=== PATIENT | female | born 1995 | race Caucasian/White ===

== ENCOUNTER 2018-11-17 23:44 | Emergency (ER) | payer OTHER, SELFPAY ==
[2018-11-17 23:58] VITALS: BP 119/76; PULSE 65; RESP 18; TEMP 36.6; O2SAT 100; BMI 22.4
[2018-11-17] MEDS: TET,DIPH,PERTUSS(ACELL),VAC/PF 0.5 ML SYRINGE IM (23:59)
[2018-11-18 01:10] VITALS: BP 117/72; PULSE 68; RESP 19; TEMP 36.9; O2SAT 100
--- NOTE | 2018-11-21 07:34 | ED_ITS ---
HPI - Wound/Laceration General Chief Complaint: Wound/Laceration Stated Complaint: left hand cut today Time Seen by Provider: 11/17/18 23:49 Source: patient and family Mode of arrival: ambulatory Limitations: no limitations History of Present Illness HPI narrative: 23-year-old female, daily smoker presents with chief complaint of a laceration of her left hand just prior to arrival. It is work related injury, accidental in with a sharp knife. She has full range of motion and denies numbness or tingling. She is not dizzy nor weak or lightheaded. Onset (ago): minute(s) Extremity Location: Left: hand Place: work Patient tetanus UTD: Yes Context: accidental Associated symptoms: pain Treatments prior to arrival: bandage Related Data Previous Rx's Medication Instructions Recorded citalopram 20 mg tablet 20 mg PO DAILY #30 tab 04/26/18 clonazepam 0.5 mg tablet 1 mg PO BIDP PRN #20 tab 04/27/18 Allergies Allergy/AdvReac Type Severity Reaction Status Date / Time No Known Drug Allergies Allergy Verified 04/26/18 11:05 Review of Systems Constitutional Denies chills, Denies fever(s), Denies lethargy and Denies weakness Eyes Denies change in vision, Denies eye discharge, Denies irritation and Denies loss of vision ENT Ears, Nose, Mouth, and Throat: Denies change in voice, Denies neck pain and Denies sore throat Cardiovascular Denies chest pain, Denies irregular heart rhythm, Denies lightheadedness, Denies palpitations, Denies dyspnea, Denies dyspnea on exertion and Denies orthopnea Respiratory Denies cough, Denies dyspnea, Denies dyspnea on exertion and Denies wheezing Gastrointestinal Gastrointestinal: Denies abdominal pain, Denies change in bowel habits, Denies diarrhea, Denies nausea and Denies vomiting Genitourinary Denies hematuria, Denies flank pain, Denies urinary incontinence and Denies urinary urgency Musculoskeletal Denies neck pain Integumentary/Breasts Denies pruritus, Denies erythema, Denies rash and Reports wounds Neurologic Denies confusion, Denies loss of vision and Denies weakness Psychiatric Denies anxiety, Denies confusion, Denies depression, Denies homicidal ideation and Denies suicidal ideation Endocrine Denies palpitations Hematologic/Lymphatic Denies easy bruising Allergic/Immunologic Denies wheezing [facility] Surgical History History of tonsillectomy Social History Smoking Status: Current every day smoker alcohol intake: never substance use type: marijuana Exam Narrative Exam Narrative: GEN: AOx3 and in mild distress EYES: Pupils are equal, round, and reactive to light and accommodation. Extraoccular muscles are intact bilaterally. There is no subconjunctival hemorrhage or exudate. CHEST: Lungs are clear to auscultation bilaterally and free of wheezes, rales, or rhonchi. Heart rate is regular rhythm, there are no murmurs, clicks, rubs, or gallops. There is no chest wall tenderness. ABD: Abdomen is soft and nontender. There is no guarding or rebound. Bowel sounds are normal in all 4 quadrants. There is no mass or organomegaly. EXT: Full painless ROM of all extremities with no loss of sensation or strength. SKIN: 1 cm laceration on dorsum of left hand, no tendon involvement, deep structures intact, viewed in bloodless field. Warm, pink, and dry. No erythema or rash Initial Vital Signs Initial Vital Signs: Vital Signs Temperature 97.9 F 11/17/18 23:58 Pulse Rate 65 11/17/18 23:58 Respiratory Rate 18 11/17/18 23:58 Blood Pressure 119/76 11/17/18 23:58 Pulse Oximetry 100 11/17/18 23:58 Procedures Laceration Repair Laceration 1: Site: hand Side (If applicable): left Size (cm): 1 Description: linear Depth: simple, single layer Local Anesthetic: lidocaine 1% and with bicarb Amount of anesthesia used (mL): 3 Pre-repair: wound explored, irrigated extensively and deep structures intact Skin layer closed with: nylon Size (cm): 5-0 Number of sutures: 4 Technique: simple, interrupted Course Orders Ordered: Discontinued Medications Diphtheria/Tetanus/Acell Pertussis (Adacel) 0.5 ml IM .ONCE ONE Stop: 11/17/18 23:59 Last Admin: 11/17/18 23:59 Dose: 0.5 ml Discharge Plan Departure Patient Disposition: Home Clinical Impression: Laceration Discharge Date/Time: 11/18/18 01:10 Interventions: ED Discharge Assessment Last Done: 11/18/18 01:10 Instructions: DI for Laceration Repair -- Simple Activity Restrictions/Additional Instructions: Please keep the wound clean and dry to the best of your ability. Please monitor for signs of infection such as redness to the skin or increasing pain. Have the sutures removed by your doctor in about 7 days. If you are unable to get into your doctor, we would be happy to remove the sutures in that same timeframe. Prescriptions: No Action citalopram 20 mg tablet 20 mg PO DAILY Qty: 30 RF: 5 clonazepam 0.5 mg tablet 1 mg PO BIDP PRN (Reason: anxiety) Qty: 20 RF: 1
== END 2018-11-18 01:10 | disposition home or self-care (01) ==
PROVIDERS: Emergency Provider Emergency Medicine
DX: S61.412A Laceration without foreign body of left hand, initial encounter (principal); W26.0XXA Contact with knife, initial encounter; Y99.0 Civilian activity done for income or pay
CPT/HCPCS: 12001; 90471; 99283; 90715

== ENCOUNTER 2019-03-21 16:00 | Outpatient (RCR) | payer OTHER, MEDICAID, SELFPAY ==
--- NOTE | 2019-01-29 17:20 | PT.OPPOC ---
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 Primary Care Provider Specialty: Family Practice Address: [address] [place] [address], [place], [place], [facility] Email: Plan Of Care PT-OP-T Assessment and Plan Start: 01/28/19 17:17 Freq: Status: Active Protocol: Document 01/28/19 17:20 EA (Rec: 01/28/19 17:36 EA [id number]) Physical Therapy Assessment Rehab Potential Rehabilitation Potential Good Evaluation Complexity Number of Personal Factors/Comorbidities 1-2 Number of Body Systems Impaired 1-2 Clinical Presentation at Evaluation Stable Impairments Impairments Pain Posture Soft Tissue Mobility Other Concerns Barriers to Rehabilitation Depression Goals Four Impairment Impaired sleeping Medical Office Secretary Goal (LTG) Patient will sleep > 6 hours without symptoms LTG Duration 4 wks Three Impairment Impaired sitting tolerance Longterm Goal (LTG) Patient will sit > on different surface > 2 hours with out increase in symptoms LTG Duration 4 wks Two Impairment Impaired posture Medical Office Secretary Goal (LTG) Patient exhibits near to normal posture to improve function and prevent muscular imbalances LTG Duration 4 wks One Impairment Oswestry low back pain scale of 19/50 Medical Office Secretary Goal (LTG) Patient will have Oswestry score of <10/50 LTG Duration 4 wks Assessment Summary Assessment Pleasant 23 y/o F patient with referring diagnosis of low back strain presented today with limitation in lumbosacral spine mobility due to pain. Lumbar spine special tests reveals + with active SLR, Left Gaenslen's SI joint test is positive as well. MMT and sensory tests reveals insignificant with ability of the patient walk on toes and heels. Back and bilateral hip extension reveals + which suggests lumbar dysfunction. In my professional opinion patient would benefit with skilled PT to correct posture through core stabilization exercises and use of modalities/manual to alleviate symptoms. Physical Therapy Plan Frequency and Duration Frequency of Treatment 2x/Week Duration of Treatment 8 Plan of Care Start Date 01/28/19 Plan of Care End Date 03/18/19 Therapeutic Interventions Therapeutic Interventions Home Exercise Program Manual Therapy Patient/Caregiver Education Self-Care/Home Management Soft Tissue Mobilization Taping Therapeutic Exercises Modalities Cold Pack/Ice Massage Electric Stimulation Hot Packs Iontophoresis Ultrasound Next Visit Focus/Plan Next Note Type Treatment Note Next Visit Plan HEP, manual and modalities Plan of Care Dates Plan of Care Start Date 01/28/19 Plan of Care End Date 03/18/19 Please Sign and Return: I have reviewed this Plan of Care and certify that the skilled therapy services above are required to meet the patient?s needs. Physician Signature Date Printed Name and Credentials Clinical Instructor Signature Printed Name and Credentials
--- NOTE | 2019-01-29 17:20 | PT.OIE ---
Current Diagnoses Strain of muscle, fascia and tendon of lower back, initial encounter (01/28/19) Past Surgical History (Last Reviewed 11/21/18 @ 07:33 by Yunier Dowd DO) History of tonsillectomy Provider Visit Care Team Role Provider Type MARGOT Marmolejo Attending Provider Advanced Intranet Specialist Primary Care Provider Specialty: Family Practice Address: [address] [place] [address], [id number] Email: Physical Therapy Initial Evaluation PT-OP-A Visit Information Start: 01/28/19 17:17 Freq: Status: Active Protocol: Document 01/28/19 17:20 EA (Rec: 01/28/19 17:36 EA [id number]) Out-Patient Physical Therapy Visit Information Visit Information Visit Type Initial Evaluation Visit Start Time 13:45 Visit Stop Time 14:30 Total Visit Minutes 40 Visit Number 1 Evaluation Information Evaluation Date 01/28/19 PT-OP-B Current Condition Start: 01/28/19 17:17 Freq: Status: Active Protocol: Document 01/28/19 17:20 EA (Rec: 01/28/19 17:36 EA [id number]) Current Condition History of Current Condition Onset Date Chronic 7 years ago History of Current Condition Patient reports present condition started seven years ago with no known significant injury or medical history. Patient states that common OTC pain meds managed pain and lately she has been using medical marijuana to improved her function everyday. She mentioned feels at this time that she is dependent on medical marijuana and that is why she is seeking physical therapy services. Pt reports morning stiffness and difficulty in mobility is common. She denies any numbness or loss of function to both LE. She feels the whole back and posterior neck are tight and sore. 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 Prior Treatments and Tests OTC and Medical Marijuana Future Testing and Treatments Planned None identified Treatment Goals Patient/Caregiver Goals Patient would like to reduce pain to at least 2/10 and strengthen core muscle. 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 Baseline Function- Recreation/Hobbies Wall climbing 3 x wk Current Functional Impairments (Reported) Functional Limitations- ADL's Indep Functional Limitations- Mobility/Gait Indep Functional Limitations- Work/School Limited with long hours of standing and bending Functional Limitations- Recreation/ Unable to to perform > 2x/wk Hobbies of wall climbing due to increased of pain Personal Factors Other Personal Factors That May Effect Depression Therapy/Recovery PT-OP-C Subjective Start: 01/28/19 17:17 Freq: Status: Active Protocol: Document 01/29/19 17:20 EA (Rec: 01/30/19 12:18 EA [id number]) OP-PT Subjective Patient Comments Patient Comments I want to reduce pain to 1/10 ; states I'am sure my mid back, neck and shoulder pain is due to my low back pain. Patient Reported Progress Same Patient Questionnaires Oswestry Low Back Index Oswestry Score 20 Oswestry Impairment 20 to 39% Impaired (Score 20- 39) OP-PT Pain Assessment Pain Assessment Grid Paper Pain Assessment Grid Completed Yes Location Bilateral Lower Back Pain Location Details SI and pralaumbars areas Intensity 6 Scale Used Numeric (1 - 10) Description Aching Tender Tightness Frequency Intermittent Pain Aggravating Factors Position Activity Bending Other Pain Alleviating Factors Marijuana, OTC pain meds PT-OP-G Mobility & Gait Start: 01/28/19 17:17 Freq: Status: Active Protocol: Document 01/29/19 17:00 EA (Rec: 01/30/19 07:30 EA [id number]) OP Gait Assessment Comments Gait Comments WFL PT-OP-J Posture/Palpation/Skin Start: 01/28/19 17:17 Freq: Status: Active Protocol: Document 01/29/19 17:00 EA (Rec: 01/30/19 07:30 EA [id number]) Posture Evaluation Comments Posture Comments Increased lumbar lordosis PT-OP-K Range of Motion Start: 01/28/19 17:17 Freq: Status: Active Protocol: Document 01/29/19 17:00 EA (Rec: 01/30/19 07:30 EA [id number]) Lumbar Spine Range of Motion Lumbar Spine Active Percentage Testing Position Standing Flexion 90 Extension 85 Rotation Left 90 Rotation Right 90 Lateral Flexion Left 60 Lateral Flexion Right 50 ROM Limitations Soft Tissue Tightness Pain PT-OP-L Special Tests Start: 01/28/19 17:17 Freq: Status: Active Protocol: Document 01/29/19 17:00 EA (Rec: 01/30/19 07:30 EA [id number]) Special Tests Lumbar Spine Special Tests Other- 1 Test Results Factes posterior quadrant + Straight Leg Raise Test Results + Stork Test Test Results - Prone Instability Test Test Results + PT-OP-M Strength Start: 01/28/19 17:17 Freq: Status: Active Protocol: Document 01/28/19 17:20 EA (Rec: 01/28/19 17:36 EA [id number]) Hip Strength Hip Manual Muscle Testing Right Reason Not Measured WFL Left Reason Not Measured WFL Knee Strength Knee Manual Muscle Testing Right Reason Not Measured WFL Left Reason Not Measured WFL PT-OP-Q Treatments Start: 01/28/19 17:17 Freq: Status: Active Protocol: Document 01/28/19 17:20 EA (Rec: 01/28/19 17:36 EA [id number]) Manual Therapy Treatment Soft Tissue Mobilization 1 Body Location Both traps, SI jnt, rhomboids Mobilization Type Myofascial Release Sustained Pressure Trigger Point Release Intensity/Depth Moderate Body Position Prone Self-Care/Home Management Treatment Education Patient Education Home Exercise Program Pain Management Posture PT-OP-T Assessment and Plan Start: 01/28/19 17:17 Freq: Status: Active Protocol: Document 01/28/19 17:20 EA (Rec: 01/28/19 17:36 EA [id number]) Physical Therapy Assessment Rehab Potential Rehabilitation Potential Good Evaluation Complexity Number of Personal Factors/Comorbidities 1-2 Number of Body Systems Impaired 1-2 Clinical Presentation at Evaluation Stable Impairments Impairments Pain Posture Soft Tissue Mobility Other Concerns Barriers to Rehabilitation Depression Goals Four Impairment Impaired sleping Water Quality Control Engineer Goal (LTG) Patient will sleep > 6 hours without symptoms LTG Duration 4 wks Three Impairment Impaired sitting tolerance Prison Goal (LTG) Patient allan sit > on different surface > 2 hours withotu increase in symptoms LTG Duration 4 wks Two Impairment Impaired posture Water Quality Control Engineer Goal (LTG) Patient exhibits near to normal posture to improve function and prevent muscular imbalances LTG Duration 4 wks One Impairment Oswetry low back pain scale of 19/50 Prison Goal (LTG) Patient will have Oswetry score of <10/50 LTG Duration 4 wks Assessment Summary Assessment Pleasant 23 y/o F patient with referring diagnosis of low back strain presented today with limitation in lumbosacral spine mobility due to pain. Lumbar spine special tests reveals + with active SLR, Left Gaenslen's SI joint test is positive as well. MMT and sensory tests reveals insignificant with ability of the patient walk on toes and heels. Back and bilateral hip extension reveals + which suggests lumbar dysfunction. In my professional opinion patient would benefit with skilled PT to correct posture through core stabilization exercises and use of modalities/manual to alleviate symptoms. Physical Therapy Plan Frequency and Duration Frequency of Treatment 2x/Week Duration of Treatment 8 Plan of Care Start Date 01/28/19 Plan of Care End Date 03/18/19 Therapeutic Interventions Therapeutic Interventions Home Exercise Program Manual Therapy Patient/Caregiver Education Self-Care/Home Management Soft Tissue Mobilization Taping Therapeutic Exercises Modalities Cold Pack/Ice Massage Electric Stimulation Hot Packs Iontophoresis Ultrasound Next Visit Focus/Plan Next Note Type Treatment Note Next Visit Plan HEP, manual and modalities
--- NOTE | 2019-01-31 15:30 | PT.OTN ---
Current Diagnoses Strain of muscle, fascia and tendon of lower back, initial encounter (01/31/19) Physical Therapy Treatment Note PT-OP-A Visit Information Start: 01/28/19 17:17 Freq: Status: Active Protocol: Document 01/31/19 15:17 EA (Rec: 01/31/19 15:27 EA [id number]) Out-Patient Physical Therapy Visit Information Visit Information Visit Type Treatment Note Visit Start Time 14:30 Visit Stop Time 15:15 Total Visit Minutes 45 Visit Number 2 PT-OP-B Current Condition Start: 01/28/19 17:17 Freq: Status: Active Protocol: Document 01/28/19 17:20 EA (Rec: 01/28/19 17:36 EA [id number]) Current Condition History of Current Condition Onset Date Chronic 7 years ago History of Current Condition Patient reports present condition started seven years ago with no known significant injury or medical history. Patient states that common OTC pain meds managed pain and lately she has been using medical marijuana to improved her function everyday. She mentioned feels at this time that she is dependent on medical marijuana and that is why she is seeking physical therapy services. Pt reports morning stiffness and difficulty in mobility is common. She denies any numbness or loss of function to both LE. She feels the whole back and posterior neck are tight and sore. 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 Prior Treatments and Tests OTC and Medical Marijuana Future Testing and Treatments Planned None identified Treatment Goals Patient/Caregiver Goals Patient would like to reduce pain to at least 2/10 and strengthen core muscle. 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 Baseline Function- Recreation/Hobbies Wall climbing 3 x wk Current Functional Impairments (Reported) Functional Limitations- ADL's Indep Functional Limitations- Mobility/Gait Indep Functional Limitations- Work/School Limited with long hours of standing and bending Functional Limitations- Recreation/ Unable to to perform > 2x/wk Hobbies of wall climbing due to increased of pain Personal Factors Other Personal Factors That May Effect Depression Therapy/Recovery PT-OP-C Subjective Start: 01/28/19 17:17 Freq: Status: Active Protocol: Document 01/31/19 15:17 EA (Rec: 01/31/19 15:27 EA [id number]) OP-PT Subjective Patient Comments Patient Comments Pt reports her girlfriend cracked her back and feels good after that; states back soreness usually occured happen in the morning. Patient Reported Progress Same PT-OP-G Mobility & Gait Start: 01/28/19 17:17 Freq: Status: Active Protocol: Document 01/29/19 17:00 EA (Rec: 01/30/19 07:30 EA [id number]) OP Gait Assessment Comments Gait Comments WFL PT-OP-J Posture/Palpation/Skin Start: 01/28/19 17:17 Freq: Status: Active Protocol: Document 01/29/19 17:00 EA (Rec: 01/30/19 07:30 EA [id number]) Posture Evaluation Comments Posture Comments Increased lumbar lordosis PT-OP-K Range of Motion Start: 01/28/19 17:17 Freq: Status: Active Protocol: Document 01/29/19 17:00 EA (Rec: 01/30/19 07:30 EA [id number]) Lumbar Spine Range of Motion Lumbar Spine Active Percentage Testing Position Standing Flexion 90 Extension 85 Rotation Left 90 Rotation Right 90 Lateral Flexion Left 60 Lateral Flexion Right 50 ROM Limitations Soft Tissue Tightness Pain PT-OP-L Special Tests Start: 01/28/19 17:17 Freq: Status: Active Protocol: Document 01/29/19 17:00 EA (Rec: 01/30/19 07:30 EA [id number]) Special Tests Lumbar Spine Special Tests Other- 1 Test Results Factes posterior quadrant + Straight Leg Raise Test Results + Stork Test Test Results - Prone Instability Test Test Results + PT-OP-M Strength Start: 01/28/19 17:17 Freq: Status: Active Protocol: Document 01/28/19 17:20 EA (Rec: 01/28/19 17:36 EA [id number]) Hip Strength Hip Manual Muscle Testing Right Reason Not Measured WFL Left Reason Not Measured WFL Knee Strength Knee Manual Muscle Testing Right Reason Not Measured WFL Left Reason Not Measured WFL PT-OP-Q Treatments Start: 01/28/19 17:17 Freq: Status: Active Protocol: Document 01/31/19 15:17 EA (Rec: 01/31/19 15:27 EA [id number]) Therapeutic Exercises Supine Exercises 4 Supine Exercise Name PPT with SLR Side bilateral Reps/Minutes 10reps x 2sets 3 Supine Exercise Name Lumbar rotation stretch Side bilateral Reps/Minutes x15SH x 2 reps 2 Supine Exercise Name BKTC Side bilateral Reps/Minutes x15SH x 2 reps 1 Supine Exercise Name SKTC Side bilateral Reps/Minutes x15SH x 2 reps Prone Exercises 1 Prone Exercise Name HIP extension Side bilateral Reps/Minutes x 10 reps Manual Therapy Treatment Soft Tissue Mobilization 1 Mobilization Type Myofascial Release Rolling Sustained Pressure Trigger Point Release Intensity/Depth Moderate Body Position Prone PT-OP-R Modalities Start: 01/31/19 15:28 Freq: Status: Active Protocol: Document 01/31/19 15:28 EA (Rec: 01/31/19 15:29 EA [id number]) Electric Stimulation Electric Stimulation Interferential Current (IFC) Body Location Lumbosacral Duration (Minutes) 15 Contraction Type Normal Patient Position Prone Combined With Heat/Cold Hot Pack PT-OP-T Assessment and Plan Start: 01/28/19 17:17 Freq: Status: Active Protocol: Document 01/31/19 15:17 EA (Rec: 01/31/19 15:27 EA [id number]) Physical Therapy Assessment Assessment Summary Assessment Pt tolerated treatment well with slight discomfort during hip extension. Physical Therapy Plan Next Visit Focus/Plan Next Note Type Treatment Note
--- NOTE | 2019-02-07 16:45 | PT.OTN ---
Current Diagnoses Strain of muscle, fascia and tendon of lower back, initial encounter (02/07/19) Physical Therapy Treatment Note PT-OP-A Visit Information Start: 01/28/19 17:17 Freq: Status: Active Protocol: Document 02/07/19 17:35 RCC (Rec: 02/07/19 17:50 RCC [email or web address]) Out-Patient Physical Therapy Visit Information Visit Information Visit Type Treatment Note Visit Start Time 16:45 Visit Stop Time 17:35 Total Visit Minutes 50 Visit Number 3 Number of MOLD CHIPPER Visits 0 Evaluation Information Evaluation Date 01/28/19 PT-OP-B Current Condition Start: 01/28/19 17:17 Freq: Status: Active Protocol: Document 01/28/19 17:20 EA (Rec: 01/28/19 17:36 EA [id number]) Current Condition History of Current Condition Onset Date Chronic 7 years ago History of Current Condition Patient reports present condition started seven years ago with no known significant injury or medical history. Patient states that common OTC pain meds managed pain and lately she has been using medical marijuana to improved her function everyday. She mentioned feels at this time that she is dependent on medical marijuana and that is why she is seeking physical therapy services. Pt reports morning stiffness and difficulty in mobility is common. She denies any numbness or loss of function to both LE. She feels the whole back and posterior neck are tight and sore. 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 Prior Treatments and Tests OTC and Medical Marijuana Future Testing and Treatments Planned None identified Treatment Goals Patient/Caregiver Goals Patient would like to reduce pain to at least 2/10 and strengthen core muscle. 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 Baseline Function- Recreation/Hobbies Wall climbing 3 x wk Current Functional Impairments (Reported) Functional Limitations- ADL's Indep Functional Limitations- Mobility/Gait Indep Functional Limitations- Work/School Limited with long hours of standing and bending Functional Limitations- Recreation/ Unable to to perform > 2x/wk Hobbies of wall climbing due to increased of pain Personal Factors Other Personal Factors That May Effect Depression Therapy/Recovery PT-OP-C Subjective Start: 01/28/19 17:17 Freq: Status: Active Protocol: Document 02/07/19 17:35 RCC (Rec: 02/07/19 17:50 RCC [email or web address]) OP-PT Subjective Patient Comments Patient Comments Pt states that she has had some increased upper back pain since attempting to rock climb indoors. Her low back felt much better after heat and E-stim. PT-OP-G Mobility & Gait Start: 01/28/19 17:17 Freq: Status: Active Protocol: Document 01/29/19 17:00 EA (Rec: 01/30/19 07:30 EA [id number]) OP Gait Assessment Comments Gait Comments WFL PT-OP-J Posture/Palpation/Skin Start: 01/28/19 17:17 Freq: Status: Active Protocol: Document 01/29/19 17:00 EA (Rec: 01/30/19 07:30 EA [id number]) Posture Evaluation Comments Posture Comments Increased lumbar lordosis PT-OP-K Range of Motion Start: 01/28/19 17:17 Freq: Status: Active Protocol: Document 01/29/19 17:00 EA (Rec: 01/30/19 07:30 EA [id number]) Lumbar Spine Range of Motion Lumbar Spine Active Percentage Testing Position Standing Flexion 90 Extension 85 Rotation Left 90 Rotation Right 90 Lateral Flexion Left 60 Lateral Flexion Right 50 ROM Limitations Soft Tissue Tightness Pain PT-OP-L Special Tests Start: 01/28/19 17:17 Freq: Status: Active Protocol: Document 01/29/19 17:00 EA (Rec: 01/30/19 07:30 EA [id number]) Special Tests Lumbar Spine Special Tests Other- 1 Test Results Factes posterior quadrant + Straight Leg Raise Test Results + Stork Test Test Results - Prone Instability Test Test Results + PT-OP-M Strength Start: 01/28/19 17:17 Freq: Status: Active Protocol: Document 01/28/19 17:20 EA (Rec: 01/28/19 17:36 EA [id number]) Hip Strength Hip Manual Muscle Testing Right Reason Not Measured WFL Left Reason Not Measured WFL Knee Strength Knee Manual Muscle Testing Right Reason Not Measured WFL Left Reason Not Measured WFL PT-OP-Q Treatments Start: 01/28/19 17:17 Freq: Status: Active Protocol: Document 02/07/19 17:35 RCC (Rec: 02/07/19 17:50 RCC [email or web address]) Therapeutic Exercises Supine Exercises PPT Supine Exercise Name PPT in hooklying Side bilateral Reps/Minutes x10 Comments tactile cuing foam roll Supine Exercise Name B shoulder flexion with hold supine on foam roll Side bilateral Reps/Minutes x10 Other Exercises Quadruped TA Other Exercise Name Quadruped Transverse abdominal activation Side bilateral Reps/Minutes 6 min Comments tactile cuing Manual Therapy Treatment Soft Tissue Mobilization 1 Body Location B rhomboids, UT, LT, lumbar paraspinals and QL Mobilization Type Myofascial Release Rolling Sustained Pressure Intensity/Depth Moderate Body Position Prone Comments 15 min upper, 15 min lower back PT-OP-R Modalities Start: 01/31/19 15:28 Freq: Status: Active Protocol: Document 02/07/19 17:35 RCC (Rec: 02/07/19 17:50 RCC [email or web address]) Electric Stimulation Electric Stimulation Interferential Current (IFC) Body Location Lumbosacral and thoracic Duration (Minutes) 10 Contraction Type Normal Patient Position Prone Combined With Heat/Cold Hot Pack PT-OP-T Assessment and Plan Start: 01/28/19 17:17 Freq: Status: Active Protocol: Document 02/07/19 17:35 RCC (Rec: 02/07/19 17:50 RCC [email or web address]) Physical Therapy Assessment Assessment Summary Assessment Pt with R>L tension in rhomboids and upper and lower trapezius with palpation, likely due to rock climbing earlier this date. Pt with high difficulty performing PPT initially in hooklying, and required quadruped position for TA activation. Pt's upper back issues likely secondary to impaired posture, along with poor core stabilization. Physical Therapy Plan Frequency and Duration Frequency of Treatment 2x/Week Duration of Treatment 8 Plan of Care Start Date 01/28/19 Plan of Care End Date 03/18/19 Next Visit Focus/Plan Next Note Type Treatment Note Next Visit Plan review PPT and TA activation, progress with PPT with legs straight and in standing
--- NOTE | 2019-02-12 16:59 | PT.OTN ---
Current Diagnoses Strain of muscle, fascia and tendon of lower back, initial encounter (02/12/19) Physical Therapy Treatment Note PT-OP-A Visit Information Start: 01/28/19 17:17 Freq: Status: Active Protocol: Document 02/12/19 16:52 GGD (Rec: 02/12/19 16:58 GGD [email or web address]) Out-Patient Physical Therapy Visit Information Visit Information Visit Type Treatment Note Visit Start Time 16:00 Visit Stop Time 16:55 Total Visit Minutes 55 Visit Number 4 Number of SETTER MACHINE Visits 1 Evaluation Information Evaluation Date 01/28/19 PT-OP-B Current Condition Start: 01/28/19 17:17 Freq: Status: Active Protocol: Document 01/28/19 17:20 EA (Rec: 01/28/19 17:36 EA [id number]) Current Condition History of Current Condition Onset Date Chronic 7 years ago History of Current Condition Patient reports present condition started seven years ago with no known significant injury or medical history. Patient states that common OTC pain meds managed pain and lately she has been using medical marijuana to improved her function everyday. She mentioned feels at this time that she is dependent on medical marijuana and that is why she is seeking physical therapy services. Pt reports morning stiffness and difficulty in mobility is common. She denies any numbness or loss of function to both LE. She feels the whole back and posterior neck are tight and sore. 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 Prior Treatments and Tests OTC and Medical Marijuana Future Testing and Treatments Planned None identified Treatment Goals Patient/Caregiver Goals Patient would like to reduce pain to at least 2/10 and strengthen core muscle. 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 Function- Recreation/Hobbies Wall climbing 3 x wk Current Functional Impairments (Reported) Functional Limitations- ADL's Indep Functional Limitations- Mobility/Gait Indep Functional Limitations- Work/School Limited with long hours of standing and bending Functional Limitations- Recreation/ Unable to to perform > 2x/wk Hobbies of wall climbing due to increased of pain Personal Factors Other Personal Factors That May Effect Depression Therapy/Recovery PT-OP-C Subjective Start: 01/28/19 17:17 Freq: Status: Active Protocol: Document 02/12/19 16:52 GGD (Rec: 02/12/19 16:58 GGD [email or web address]) OP-PT Subjective Patient Comments Patient Comments Pt states she having less pain with sleeping, but pain increase with work. PT-OP-G Mobility & Gait Start: 01/28/19 17:17 Freq: Status: Active Protocol: Document 01/29/19 17:00 EA (Rec: 01/30/19 07:30 EA [id number]) OP Gait Assessment Comments Gait Comments WFL PT-OP-J Posture/Palpation/Skin Start: 01/28/19 17:17 Freq: Status: Active Protocol: Document 01/29/19 17:00 EA (Rec: 01/30/19 07:30 EA [id number]) Posture Evaluation Comments Posture Comments Increased lumbar lordosis PT-OP-K Range of Motion Start: 01/28/19 17:17 Freq: Status: Active Protocol: Document 01/29/19 17:00 EA (Rec: 01/30/19 07:30 EA [id number]) Lumbar Spine Range of Motion Lumbar Spine Active Percentage Testing Position Standing Flexion 90 Extension 85 Rotation Left 90 Rotation Right 90 Lateral Flexion Left 60 Lateral Flexion Right 50 ROM Limitations Soft Tissue Tightness Pain PT-OP-L Special Tests Start: 01/28/19 17:17 Freq: Status: Active Protocol: Document 01/29/19 17:00 EA (Rec: 01/30/19 07:30 EA [id number]) Special Tests Lumbar Spine Special Tests Other- 1 Test Results Factes posterior quadrant + Straight Leg Raise Test Results + Stork Test Test Results - Prone Instability Test Test Results + PT-OP-M Strength Start: 01/28/19 17:17 Freq: Status: Active Protocol: Document 01/28/19 17:20 EA (Rec: 01/28/19 17:36 EA [id number]) Hip Strength Hip Manual Muscle Testing Right Reason Not Measured WFL Left Reason Not Measured WFL Knee Strength Knee Manual Muscle Testing Right Reason Not Measured WFL Left Reason Not Measured WFL PT-OP-Q Treatments Start: 01/28/19 17:17 Freq: Status: Active Protocol: Document 02/12/19 16:52 GGD (Rec: 02/12/19 16:58 GGD [email or web address]) Therapeutic Exercises Supine Exercises PPT Supine Exercise Name PPT in hooklying Side bilateral Reps/Minutes x10 Comments tactile cuing 4 Supine Exercise Name PPT with marches Side bilateral Reps/Minutes 10x Other Exercises cat/cow Other Exercise Name cat/cow stretch Reps/Minutes 5x quadruped arm lifts Other Exercise Name OAL Side bilateral Reps/Minutes 10x Comments cues Quadruped TA Other Exercise Name Quadruped Transverse abdominal activation Side bilateral Reps/Minutes 6 min Comments tactile cuing Manual Therapy Treatment Soft Tissue Mobilization 1 Body Location B rhomboids, UT, LT, lumbar paraspinals and QL Mobilization Type Myofascial Release Rolling Sustained Pressure Intensity/Depth Moderate Body Position Prone Comments 15 min upper, 15 min lower back PT-OP-R Modalities Start: 01/31/19 15:28 Freq: Status: Active Protocol: Document 02/12/19 16:52 GGD (Rec: 02/12/19 16:58 GGD [email or web address]) Electric Stimulation Electric Stimulation Interferential Current (IFC) Body Location Lumbosacral and thoracic Duration (Minutes) 10 Contraction Type Normal Patient Position Prone Combined With Heat/Cold Hot Pack PT-OP-T Assessment and Plan Start: 01/28/19 17:17 Freq: Status: Active Protocol: Document 02/12/19 16:52 GGD (Rec: 02/12/19 16:58 GGD [email or web address]) Physical Therapy Assessment Assessment Summary Assessment Pt improving with exercise tolerance. She had tension in upper trap R > L. She needed less cues for PPT. Physical Therapy Plan Frequency and Duration Frequency of Treatment 2x/Week Duration of Treatment 8 Plan of Care Start Date 01/28/19 Plan of Care End Date 03/18/19 Next Visit Focus/Plan Next Note Type Treatment Note Next Visit Plan review PPT and TA activation, progress with stabilization.
--- NOTE | 2019-02-14 12:24 | PT.OTN ---
Current Diagnoses Strain of muscle, fascia and tendon of lower back, initial encounter (02/14/19) Physical Therapy Treatment Note PT-OP-A Visit Information Start: 01/28/19 17:17 Freq: Status: Active Protocol: Document 02/14/19 10:30 GGD (Rec: 02/14/19 12:22 GGD [email or web address]) Out-Patient Physical Therapy Visit Information Visit Information Visit Type Treatment Note Visit Start Time 10:30 Visit Stop Time 11:20 Total Visit Minutes 50 Visit Number 5 Number of DIRECTOR [employer]ENC[employer] Visits 2 Evaluation Information Evaluation Date 01/28/19 PT-OP-B Current Condition Start: 01/28/19 17:17 Freq: Status: Active Protocol: Document 01/28/19 17:20 EA (Rec: 01/28/19 17:36 EA [id number]) Current Condition History of Current Condition Onset Date Chronic 7 years ago History of Current Condition Patient reports present condition started seven years ago with no known significant injury or medical history. Patient states that common OTC pain meds managed pain and lately she has been using medical marijuana to improved her function everyday. She mentioned feels at this time that she is dependent on medical marijuana and that is why she is seeking physical therapy services. Pt reports morning stiffness and difficulty in mobility is common. She denies any numbness or loss of function to both LE. She feels the whole back and posterior neck are tight and sore. 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 Prior Treatments and Tests OTC and Medical Marijuana Future Testing and Treatments Planned None identified Treatment Goals Patient/Caregiver Goals Patient would like to reduce pain to at least 2/10 and strengthen core muscle. 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 Baseline Function- Recreation/Hobbies Wall climbing 3 x wk Current Functional Impairments (Reported) Functional Limitations- ADL's Indep Functional Limitations- Mobility/Gait Indep Functional Limitations- Work/School Limited with long hours of standing and bending Functional Limitations- Recreation/ Unable to to perform > 2x/wk Hobbies of wall climbing due to increased of pain Personal Factors Other Personal Factors That May Effect Depression Therapy/Recovery PT-OP-C Subjective Start: 01/28/19 17:17 Freq: Status: Active Protocol: Document 02/14/19 10:30 GGD (Rec: 02/14/19 12:22 GGD [email or web address]) OP-PT Subjective Patient Comments Patient Comments Pt states she having less pain with sleeping. She hasn't work and had less pain. PT-OP-G Mobility & Gait Start: 01/28/19 17:17 Freq: Status: Active Protocol: Document 01/29/19 17:00 EA (Rec: 01/30/19 07:30 EA [id number]) OP Gait Assessment Comments Gait Comments WFL PT-OP-J Posture/Palpation/Skin Start: 01/28/19 17:17 Freq: Status: Active Protocol: Document 01/29/19 17:00 EA (Rec: 01/30/19 07:30 EA [id number]) Posture Evaluation Comments Posture Comments Increased lumbar lordosis PT-OP-K Range of Motion Start: 01/28/19 17:17 Freq: Status: Active Protocol: Document 01/29/19 17:00 EA (Rec: 01/30/19 07:30 EA [id number]) Lumbar Spine Range of Motion Lumbar Spine Active Percentage Testing Position Standing Flexion 90 Extension 85 Rotation Left 90 Rotation Right 90 Lateral Flexion Left 60 Lateral Flexion Right 50 ROM Limitations Soft Tissue Tightness Pain PT-OP-L Special Tests Start: 01/28/19 17:17 Freq: Status: Active Protocol: Document 01/29/19 17:00 EA (Rec: 01/30/19 07:30 EA [id number]) Special Tests Lumbar Spine Special Tests Other- 1 Test Results Factes posterior quadrant + Straight Leg Raise Test Results + Stork Test Test Results - Prone Instability Test Test Results + PT-OP-M Strength Start: 01/28/19 17:17 Freq: Status: Active Protocol: Document 01/28/19 17:20 EA (Rec: 01/28/19 17:36 EA [id number]) Hip Strength Hip Manual Muscle Testing Right Reason Not Measured WFL Left Reason Not Measured WFL Knee Strength Knee Manual Muscle Testing Right Reason Not Measured WFL Left Reason Not Measured WFL PT-OP-Q Treatments Start: 01/28/19 17:17 Freq: Status: Active Protocol: Document 02/14/19 10:30 GGD (Rec: 02/14/19 12:22 GGD [email or web address]) Therapeutic Exercises Supine Exercises 5 Supine Exercise Name bridges Reps/Minutes 10 4 Supine Exercise Name PPT with marches Side bilateral Reps/Minutes 10x 1 Supine Exercise Name SKTC Side bilateral Reps/Minutes x15SH x 2 reps Other Exercises cat/cow Other Exercise Name cat/cow stretch Reps/Minutes 5x quadruped arm lifts Other Exercise Name OAL Side bilateral Reps/Minutes 10x Comments cues Manual Therapy Treatment Soft Tissue Mobilization 1 Body Location B rhomboids, UT, LT, lumbar paraspinals and QL Mobilization Type Myofascial Release Rolling Sustained Pressure Intensity/Depth Moderate Body Position Prone Comments 15 min upper, 15 min lower back PT-OP-R Modalities Start: 01/31/19 15:28 Freq: Status: Active Protocol: Document 02/14/19 10:30 GGD (Rec: 02/14/19 12:22 GGD [email or web address]) Hot Pack/Cold Pack Treatment Hot Pack Location C/S & L/S Patient Position Prone Treatment Duration (minutes) 10 Patient Tolerance Good PT-OP-T Assessment and Plan Start: 01/28/19 17:17 Freq: Status: Active Protocol: Document 02/14/19 10:30 GGD (Rec: 02/14/19 12:22 GGD [email or web address]) Physical Therapy Assessment Assessment Summary Assessment Pt able to progress exercise without increase pain. She had less tenderness palpation. She is improving with core control. Physical Therapy Plan Frequency and Duration Frequency of Treatment 2x/Week Duration of Treatment 8 Plan of Care Start Date 01/28/19 Plan of Care End Date 03/18/19 Next Visit Focus/Plan Next Note Type Treatment Note Next Visit Plan advance strenthening and TA activation, progress with stabilzation.
--- NOTE | 2019-02-19 16:00 | PT.OTN ---
Current Diagnoses Strain of muscle, fascia and tendon of lower back, initial encounter (02/19/19) Physical Therapy Treatment Note PT-OP-A Visit Information Start: 01/28/19 17:17 Freq: Status: Active Protocol: Document 02/19/19 14:45 GGD (Rec: 02/20/19 15:26 GGD [email or web address]) Out-Patient Physical Therapy Visit Information Visit Information Visit Type Treatment Note Visit Start Time 16:00 Visit Stop Time 16:50 Total Visit Minutes 50 Visit Number 6 Number of SUPERVISOR FOOD CHECKERS AND CASHIERS Visits 3 PT-OP-B Current Condition Start: 01/28/19 17:17 Freq: Status: Active Protocol: Document 01/28/19 17:20 EA (Rec: 01/28/19 17:36 EA [id number]) Current Condition History of Current Condition Onset Date Chronic 7 years ago History of Current Condition Patient reports present condition started seven years ago with no known significant injury or medical history. Patient states that common OTC pain meds managed pain and lately she has been using medical marijuana to improved her function everyday. She mentioned feels at this time that she is dependent on medical marijuana and that is why she is seeking physical therapy services. Pt reports morning stiffness and difficulty in mobility is common. She denies any numbness or loss of function to both LE. She feels the whole back and posterior neck are tight and sore. 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 Prior Treatments and Tests OTC and Medical Marijuana Future Testing and Treatments Planned None identified Treatment Goals Patient/Caregiver Goals Patient would like to reduce pain to at least 2/10 and strengthen core muscle. 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 Baseline Function- Recreation/Hobbies Wall climbing 3 x wk Current Functional Impairments (Reported) Functional Limitations- ADL's Indep Functional Limitations- Mobility/Gait Indep Functional Limitations- Work/School Limited with long hours of standing and bending Functional Limitations- Recreation/ Unable to to perform > 2x/wk Hobbies of wall climbing due to increased of pain Personal Factors Other Personal Factors That May Effect Depression Therapy/Recovery PT-OP-C Subjective Start: 01/28/19 17:17 Freq: Status: Active Protocol: Document 02/19/19 14:45 GGD (Rec: 02/20/19 15:26 GGD [email or web address]) OP-PT Subjective Patient Comments Patient Comments Pt states she worked today, and having less pain. PT-OP-G Mobility & Gait Start: 01/28/19 17:17 Freq: Status: Active Protocol: Document 01/29/19 17:00 EA (Rec: 01/30/19 07:30 EA [id number]) OP Gait Assessment Comments Gait Comments WFL PT-OP-J Posture/Palpation/Skin Start: 01/28/19 17:17 Freq: Status: Active Protocol: Document 01/29/19 17:00 EA (Rec: 01/30/19 07:30 EA [id number]) Posture Evaluation Comments Posture Comments Increased lumbar lordosis PT-OP-K Range of Motion Start: 01/28/19 17:17 Freq: Status: Active Protocol: Document 01/29/19 17:00 EA (Rec: 01/30/19 07:30 EA [id number]) Lumbar Spine Range of Motion Lumbar Spine Active Percentage Testing Position Standing Flexion 90 Extension 85 Rotation Left 90 Rotation Right 90 Lateral Flexion Left 60 Lateral Flexion Right 50 ROM Limitations Soft Tissue Tightness Pain PT-OP-L Special Tests Start: 01/28/19 17:17 Freq: Status: Active Protocol: Document 01/29/19 17:00 EA (Rec: 01/30/19 07:30 EA [id number]) Special Tests Lumbar Spine Special Tests Other- 1 Test Results Factes posterior quadrant + Straight Leg Raise Test Results + Stork Test Test Results - Prone Instability Test Test Results + PT-OP-M Strength Start: 01/28/19 17:17 Freq: Status: Active Protocol: Document 01/28/19 17:20 EA (Rec: 01/28/19 17:36 EA [id number]) Hip Strength Hip Manual Muscle Testing Right Reason Not Measured WFL Left Reason Not Measured WFL Knee Strength Knee Manual Muscle Testing Right Reason Not Measured WFL Left Reason Not Measured WFL PT-OP-Q Treatments Start: 01/28/19 17:17 Freq: Status: Active Protocol: Document 02/19/19 14:45 GGD (Rec: 02/20/19 15:26 GGD [email or web address]) Therapeutic Exercises Supine Exercises 5 Supine Exercise Name bridges Reps/Minutes 10 4 Supine Exercise Name PPT with marches Side bilateral Reps/Minutes 10x Prone Exercises 1 Prone Exercise Name Prone shoulder flexion, abd Side bilateral Resistance 1# Reps/Minutes 10 x each Sidelying Exercises clamshells Side bilateral Resistance 20 x Other Exercises cat/cow Other Exercise Name cat/cow stretch Reps/Minutes 5x quadruped arm lifts Other Exercise Name OAL Side bilateral Reps/Minutes 10x Comments cues Manual Therapy Treatment Soft Tissue Mobilization 1 Body Location B rhomboids, UT, LT, lumbar paraspinals and QL Mobilization Type Myofascial Release Rolling Sustained Pressure Intensity/Depth Moderate Body Position Prone PT-OP-R Modalities Start: 01/31/19 15:28 Freq: Status: Active Protocol: Document 02/19/19 14:45 GGD (Rec: 02/20/19 15:26 GGD [email or web address]) Hot Pack/Cold Pack Treatment Hot Pack Location C/S & L/S Patient Position Prone Treatment Duration (minutes) 10 Patient Tolerance Good PT-OP-T Assessment and Plan Start: 01/28/19 17:17 Freq: Status: Active Protocol: Document 02/19/19 14:45 GGD (Rec: 02/20/19 15:26 GGD [email or web address]) Physical Therapy Assessment Goals Four Impairment Impaired sleeping [facility] Goal (LTG) Patient will sleep > 6 hours without symptoms LTG Duration 4 wks Three Impairment Impaired sitting tolerance Rail Operator Goal (LTG) Patient allan sit > on different surface > 2 hours without increase in symptoms LTG Duration 4 wks Two Impairment Impaired posture Rail Operator Goal (LTG) Patient exhibits near to normal posture to improve function and prevent muscular imbalances LTG Duration 4 wks One Impairment Oswestry low back pain scale of 19/50 Rail Operator Goal (LTG) Patient will have Oswetry score of <10/50 LTG Duration 4 wks Assessment Summary Assessment Pt improving with exercise tolerance and pain control. She is able to progress core stabilization. She having decrease tenderness with palpation. Physical Therapy Plan Frequency and Duration Frequency of Treatment 2x/Week Duration of Treatment 8 Plan of Care Start Date 01/28/19 Plan of Care End Date 03/18/19 Next Visit Focus/Plan Next Note Type Treatment Note Next Visit Plan advance strengthening as tolerate, core and low traps.
--- NOTE | 2019-02-26 16:55 | PT.OTN ---
Current Diagnoses Strain of muscle, fascia and tendon of lower back, initial encounter (02/26/19) Physical Therapy Treatment Note PT-OP-A Visit Information Start: 01/28/19 17:17 Freq: Status: Active Protocol: Document 02/26/19 16:00 GGD (Rec: 02/26/19 16:55 GGD [email or web address]) Out-Patient Physical Therapy Visit Information Visit Information Visit Type Treatment Note Visit Start Time 16:00 Visit Stop Time 16:50 Total Visit Minutes 50 Visit Number 7 Number of JAVA PORTAL DEVELOPER Visits 4 PT-OP-B Current Condition Start: 01/28/19 17:17 Freq: Status: Active Protocol: Document 01/28/19 17:20 EA (Rec: 01/28/19 17:36 EA [id number]) Current Condition History of Current Condition Onset Date Chronic 7 years ago History of Current Condition Patient reports present condition started seven years ago with no known significant injury or medical history. Patient states that common OTC pain meds managed pain and lately she has been using medical marijuana to improved her function everyday. She mentioned feels at this time that she is dependent on medical marijuana and that is why she is seeking physical therapy services. Pt reports morning stiffness and difficulty in mobility is common. She denies any numbness or loss of function to both LE. She feels the whole back and posterior neck are tight and sore. 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 Prior Treatments and Tests OTC and Medical Marijuana Future Testing and Treatments Planned None identified Treatment Goals Patient/Caregiver Goals Patient would like to reduce pain to at least 2/10 and strengthen core muscle. 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 Baseline Function- Recreation/Hobbies Wall climbing 3 x wk Current Functional Impairments (Reported) Functional Limitations- ADL's Indep Functional Limitations- Mobility/Gait Indep Functional Limitations- Work/School Limited with long hours of standing and bending Functional Limitations- Recreation/ Unable to to perform > 2x/wk Hobbies of wall climbing due to increased of pain Personal Factors Other Personal Factors That May Effect Depression Therapy/Recovery PT-OP-C Subjective Start: 01/28/19 17:17 Freq: Status: Active Protocol: Document 02/26/19 16:00 GGD (Rec: 02/26/19 16:55 GGD [email or web address]) OP-PT Subjective Patient Comments Patient Comments Pt states she been working more and has felt stiff. PT-OP-G Mobility & Gait Start: 01/28/19 17:17 Freq: Status: Active Protocol: Document 01/29/19 17:00 EA (Rec: 01/30/19 07:30 EA [id number]) OP Gait Assessment Comments Gait Comments WFL PT-OP-J Posture/Palpation/Skin Start: 01/28/19 17:17 Freq: Status: Active Protocol: Document 01/29/19 17:00 EA (Rec: 01/30/19 07:30 EA [id number]) Posture Evaluation Comments Posture Comments Increased lumbar lordosis PT-OP-K Range of Motion Start: 01/28/19 17:17 Freq: Status: Active Protocol: Document 01/29/19 17:00 EA (Rec: 01/30/19 07:30 EA [id number]) Lumbar Spine Range of Motion Lumbar Spine Active Percentage Testing Position Standing Flexion 90 Extension 85 Rotation Left 90 Rotation Right 90 Lateral Flexion Left 60 Lateral Flexion Right 50 ROM Limitations Soft Tissue Tightness Pain PT-OP-L Special Tests Start: 01/28/19 17:17 Freq: Status: Active Protocol: Document 01/29/19 17:00 EA (Rec: 01/30/19 07:30 EA [id number]) Special Tests Lumbar Spine Special Tests Other- 1 Test Results Factes posterior quadrant + Straight Leg Raise Test Results + Stork Test Test Results - Prone Instability Test Test Results + PT-OP-M Strength Start: 01/28/19 17:17 Freq: Status: Active Protocol: Document 01/28/19 17:20 EA (Rec: 01/28/19 17:36 EA [id number]) Hip Strength Hip Manual Muscle Testing Right Reason Not Measured WFL Left Reason Not Measured WFL Knee Strength Knee Manual Muscle Testing Right Reason Not Measured WFL Left Reason Not Measured WFL PT-OP-Q Treatments Start: 01/28/19 17:17 Freq: Status: Active Protocol: Document 02/26/19 16:00 GGD (Rec: 02/26/19 16:55 GGD [email or web address]) Therapeutic Exercises Supine Exercises 5 Supine Exercise Name bridges Reps/Minutes 10 4 Supine Exercise Name PPT with marches Side bilateral Reps/Minutes 10x 1 Supine Exercise Name SKTC Side bilateral Reps/Minutes x15SH x 2 reps Sidelying Exercises clamshells Side bilateral Resistance 20 x Other Exercises cat/cow Other Exercise Name cat/cow stretch Reps/Minutes 5x quadruped arm lifts Other Exercise Name OAL Side bilateral Reps/Minutes 10x Comments cues Manual Therapy Treatment Soft Tissue Mobilization 1 Body Location B rhomboids, UT, LT, lumbar paraspinals and QL Mobilization Type Myofascial Release Rolling Sustained Pressure Intensity/Depth Moderate Body Position Prone PT-OP-R Modalities Start: 01/31/19 15:28 Freq: Status: Active Protocol: Document 02/26/19 16:00 GGD (Rec: 02/26/19 16:55 GGD [email or web address]) Hot Pack/Cold Pack Treatment Hot Pack Location C/S & L/S Patient Position Prone Treatment Duration (minutes) 10 Patient Tolerance Good PT-OP-T Assessment and Plan Start: 01/28/19 17:17 Freq: Status: Active Protocol: Document 02/26/19 16:00 GGD (Rec: 02/26/19 16:55 GGD [email or web address]) Physical Therapy Assessment Assessment Summary Assessment Pt had increase in tenderness with palpation. She is improving with core control and exercise tolerance. Physical Therapy Plan Frequency and Duration Frequency of Treatment 2x/Week Duration of Treatment 8 Plan of Care Start Date 01/28/19 Plan of Care End Date 03/18/19 Next Visit Focus/Plan Next Note Type Treatment Note Next Visit Plan advance strengthening as tolerate, core and low traps.
--- NOTE | 2019-02-28 16:00 | PT.OTN ---
Current Diagnoses Strain of muscle, fascia and tendon of lower back, initial encounter (02/28/19) Physical Therapy Treatment Note PT-OP-A Visit Information Start: 01/28/19 17:17 Freq: Status: Active Protocol: Document 02/28/19 15:49 EA (Rec: 02/28/19 15:55 EA [id number]) Out-Patient Physical Therapy Visit Information Visit Information Visit Start Time 15:15 Visit Stop Time 16:10 Visit Number 8 Number of INSTRUCTOR MODELING Visits 4 PT-OP-B Current Condition Start: 01/28/19 17:17 Freq: Status: Active Protocol: Document 01/28/19 17:20 EA (Rec: 01/28/19 17:36 EA [id number]) Current Condition History of Current Condition Onset Date Chronic 7 years ago History of Current Condition Patient reports present condition started seven years ago with no known significant injury or medical history. Patient states that common OTC pain meds managed pain and lately she has been using medical marijuana to improved her function everyday. She mentioned feels at this time that she is dependent on medical marijuana and that is why she is seeking physical therapy services. Pt reports morning stiffness and difficulty in mobility is common. She denies any numbness or loss of function to both LE. She feels the whole back and posterior neck are tight and sore. 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 Prior Treatments and Tests OTC and Medical Marijuana Future Testing and Treatments Planned None identified Treatment Goals Patient/Caregiver Goals Patient would like to reduce pain to at least 2/10 and strengthen core muscle. 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 Baseline Function- Recreation/Hobbies Wall climbing 3 x wk Current Functional Impairments (Reported) Functional Limitations- ADL's Indep Functional Limitations- Mobility/Gait Indep Functional Limitations- Work/School Limited with long hours of standing and bending Functional Limitations- Recreation/ Unable to to perform > 2x/wk Hobbies of wall climbing due to increased of pain Personal Factors Other Personal Factors That May Effect Depression Therapy/Recovery PT-OP-C Subjective Start: 01/28/19 17:17 Freq: Status: Active Protocol: Document 02/28/19 15:49 EA (Rec: 02/28/19 15:55 EA [id number]) OP-PT Subjective Patient Comments Patient Comments Pt reports she much feeling better; states she has been tired after working long hours . PT-OP-G Mobility & Gait Start: 01/28/19 17:17 Freq: Status: Active Protocol: Document 01/29/19 17:00 EA (Rec: 01/30/19 07:30 EA [id number]) OP Gait Assessment Comments Gait Comments WFL PT-OP-J Posture/Palpation/Skin Start: 01/28/19 17:17 Freq: Status: Active Protocol: Document 01/29/19 17:00 EA (Rec: 01/30/19 07:30 EA [id number]) Posture Evaluation Comments Posture Comments Increased lumbar lordosis PT-OP-K Range of Motion Start: 01/28/19 17:17 Freq: Status: Active Protocol: Document 01/29/19 17:00 EA (Rec: 01/30/19 07:30 EA [id number]) Lumbar Spine Range of Motion Lumbar Spine Active Percentage Testing Position Standing Flexion 90 Extension 85 Rotation Left 90 Rotation Right 90 Lateral Flexion Left 60 Lateral Flexion Right 50 ROM Limitations Soft Tissue Tightness Pain PT-OP-L Special Tests Start: 01/28/19 17:17 Freq: Status: Active Protocol: Document 01/29/19 17:00 EA (Rec: 01/30/19 07:30 EA [id number]) Special Tests Lumbar Spine Special Tests Other- 1 Test Results Factes posterior quadrant + Straight Leg Raise Test Results + Stork Test Test Results - Prone Instability Test Test Results + PT-OP-M Strength Start: 01/28/19 17:17 Freq: Status: Active Protocol: Document 01/28/19 17:20 EA (Rec: 01/28/19 17:36 EA [id number]) Hip Strength Hip Manual Muscle Testing Right Reason Not Measured WFL Left Reason Not Measured WFL Knee Strength Knee Manual Muscle Testing Right Reason Not Measured WFL Left Reason Not Measured WFL PT-OP-Q Treatments Start: 01/28/19 17:17 Freq: Status: Active Protocol: Document 02/28/19 15:49 EA (Rec: 02/28/19 15:55 EA [id number]) Therapeutic Exercises Supine Exercises 5 Supine Exercise Name bridges Reps/Minutes 10 PPT Supine Exercise Name PPT in hooklying Side bilateral Reps/Minutes x10 Comments tactile cuing foam roll Supine Exercise Name B shoulder flexion with hold supine on foam roll Side bilateral Reps/Minutes x10 4 Supine Exercise Name PPT with marches Side bilateral Reps/Minutes 10x 3 Supine Exercise Name Lumbar rotation stretch Side bilateral Reps/Minutes x15SH x 2 reps 2 Supine Exercise Name BKTC Side bilateral Reps/Minutes x15SH x 2 reps 1 Supine Exercise Name SKTC Side bilateral Reps/Minutes x15SH x 2 reps Prone Exercises 1 Prone Exercise Name Prone shoulder flexion, abd Side bilateral Resistance 1# Reps/Minutes 10 x each Sidelying Exercises clamshells Side bilateral Resistance 20 x Other Exercises cat/cow Other Exercise Name cat/cow stretch Reps/Minutes 10x quadruped arm lifts Other Exercise Name OAL Side bilateral Reps/Minutes 10x Comments cues Quadruped TA Other Exercise Name Quadruped Transverse abdominal activation Side bilateral Reps/Minutes 6 min Comments tactile cuing Manual Therapy Treatment Soft Tissue Mobilization 1 Body Location B rhomboids, UT, LT, lumbar paraspinals and QL Mobilization Type Myofascial Release Rolling Sustained Pressure Intensity/Depth Moderate Body Position Prone PT-OP-R Modalities Start: 01/31/19 15:28 Freq: Status: Active Protocol: Document 02/28/19 15:49 EA (Rec: 02/28/19 15:55 EA [id number]) Electric Stimulation Electric Stimulation Interferential Current (IFC) Body Location Lumbosacral and thoracic Duration (Minutes) 10 Contraction Type Normal Patient Position Prone Combined With Heat/Cold Hot Pack PT-OP-T Assessment and Plan Start: 01/28/19 17:17 Freq: Status: Active Protocol: Document 02/28/19 15:49 EA (Rec: 02/28/19 15:55 EA [id number]) Physical Therapy Assessment Assessment Summary Assessment Pt has less symptoms at this time; patient is progress well . Physical Therapy Plan Next Visit Focus/Plan Next Note Type Treatment Note Next Visit Plan advance as tolerated
--- NOTE | 2019-03-05 17:05 | PT.OTN ---
Current Diagnoses Strain of muscle, fascia and tendon of lower back, initial encounter (03/05/19) Physical Therapy Treatment Note PT-OP-A Visit Information Start: 01/28/19 17:17 Freq: Status: Active Protocol: Document 03/05/19 16:00 EA (Rec: 03/05/19 16:05 EA [id number]) Out-Patient Physical Therapy Visit Information Visit Information Visit Start Time 15:15 Visit Stop Time 16:10 Visit Number 9 Number of JD EDWARDS DEVELOPER Visits 4 PT-OP-B Current Condition Start: 01/28/19 17:17 Freq: Status: Active Protocol: Document 01/28/19 17:20 EA (Rec: 01/28/19 17:36 EA [id number]) Current Condition History of Current Condition Onset Date Chronic 7 years ago History of Current Condition Patient reports present condition started seven years ago with no known significant injury or medical history. Patient states that common OTC pain meds managed pain and lately she has been using medical marijuana to improved her function everyday. She mentioned feels at this time that she is dependent on medical marijuana and that is why she is seeking physical therapy services. Pt reports morning stiffness and difficulty in mobility is common. She denies any numbness or loss of function to both LE. She feels the whole back and posterior neck are tight and sore. 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 Prior Treatments and Tests OTC and Medical Marijuana Future Testing and Treatments Planned None identified Treatment Goals Patient/Caregiver Goals Patient would like to reduce pain to at least 2/10 and strengthen core muscle. 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 Baseline Function- Recreation/Hobbies Wall climbing 3 x wk Current Functional Impairments (Reported) Functional Limitations- ADL's Indep Functional Limitations- Mobility/Gait Indep Functional Limitations- Work/School Limited with long hours of standing and bending Functional Limitations- Recreation/ Unable to to perform > 2x/wk Hobbies of wall climbing due to increased of pain Personal Factors Other Personal Factors That May Effect Depression Therapy/Recovery PT-OP-C Subjective Start: 01/28/19 17:17 Freq: Status: Active Protocol: Document 03/05/19 16:00 EA (Rec: 03/05/19 16:05 EA [id number]) OP-PT Subjective Patient Comments Patient Comments Pt admitted only few stretches made for her low back; states low back pain is not frequent as at before. Reports left side of the neck is quite hurting. PT-OP-G Mobility & Gait Start: 01/28/19 17:17 Freq: Status: Active Protocol: Document 01/29/19 17:00 EA (Rec: 01/30/19 07:30 EA [id number]) OP Gait Assessment Comments Gait Comments WFL PT-OP-J Posture/Palpation/Skin Start: 01/28/19 17:17 Freq: Status: Active Protocol: Document 01/29/19 17:00 EA (Rec: 01/30/19 07:30 EA [id number]) Posture Evaluation Comments Posture Comments Increased lumbar lordosis PT-OP-K Range of Motion Start: 01/28/19 17:17 Freq: Status: Active Protocol: Document 01/29/19 17:00 EA (Rec: 01/30/19 07:30 EA [id number]) Lumbar Spine Range of Motion Lumbar Spine Active Percentage Testing Position Standing Flexion 90 Extension 85 Rotation Left 90 Rotation Right 90 Lateral Flexion Left 60 Lateral Flexion Right 50 ROM Limitations Soft Tissue Tightness Pain PT-OP-L Special Tests Start: 01/28/19 17:17 Freq: Status: Active Protocol: Document 01/29/19 17:00 EA (Rec: 01/30/19 07:30 EA [id number]) Special Tests Lumbar Spine Special Tests Other- 1 Test Results Factes posterior quadrant + Straight Leg Raise Test Results + Stork Test Test Results - Prone Instability Test Test Results + PT-OP-M Strength Start: 01/28/19 17:17 Freq: Status: Active Protocol: Document 01/28/19 17:20 EA (Rec: 01/28/19 17:36 EA [id number]) Hip Strength Hip Manual Muscle Testing Right Reason Not Measured WFL Left Reason Not Measured WFL Knee Strength Knee Manual Muscle Testing Right Reason Not Measured WFL Left Reason Not Measured WFL PT-OP-Q Treatments Start: 01/28/19 17:17 Freq: Status: Active Protocol: Document 03/05/19 16:36 EA (Rec: 03/05/19 16:41 EA [id number]) Cardio Equipment Recumbent Bicycle Duration (Minutes) 4 Resistance 4 Therapeutic Exercises Supine Exercises PPT Supine Exercise Name PPT in hooklying Side bilateral Reps/Minutes x10 Comments tactile cuing 4 Supine Exercise Name PPT with marches Side bilateral Reps/Minutes 10x 3 Supine Exercise Name Lumbar rotation stretch Side bilateral Reps/Minutes x15SH x 2 reps 2 Supine Exercise Name BKTC Side bilateral Reps/Minutes x15SH x 2 reps 1 Supine Exercise Name SKTC Side bilateral Reps/Minutes x15SH x 2 reps Prone Exercises 2 Prone Exercise Name T-ball T-Y Side bilateral Resistance 1# Reps/Minutes x 12 reps 1 Prone Exercise Name Prone shoulder flexion, abd Side bilateral Resistance 1# Reps/Minutes 10 x each Other Exercises cat/cow Other Exercise Name cat/cow stretch Reps/Minutes 10x Manual Therapy Treatment Soft Tissue Mobilization 1 Body Location B rhomboids, UT, LT, lumbar paraspinals and QL Mobilization Type Myofascial Release Rolling Sustained Pressure Intensity/Depth Moderate Body Position Prone PT-OP-R Modalities Start: 01/31/19 15:28 Freq: Status: Active Protocol: Document 03/05/19 16:00 EA (Rec: 03/05/19 16:05 EA [id number]) Electric Stimulation Electric Stimulation Interferential Current (IFC) Body Location Lumbosacral and thoracic Duration (Minutes) 10 Contraction Type Normal Patient Position Prone Combined With Heat/Cold Hot Pack PT-OP-T Assessment and Plan Start: 01/28/19 17:17 Freq: Status: Active Protocol: Document 03/05/19 16:36 EA (Rec: 03/05/19 16:41 EA [id number]) Physical Therapy Assessment Assessment Summary Assessment Improved form and execution with therex. Less tender to low and midback with manual PT though using deep technique. Patient continue to progress. Physical Therapy Plan Next Visit Focus/Plan Next Note Type Treatment Note Next Visit Plan advance as tolerated
--- NOTE | 2019-03-07 16:42 | PT.OTN ---
Current Diagnoses Strain of muscle, fascia and tendon of lower back, initial encounter (03/07/19) Physical Therapy Treatment Note PT-OP-A Visit Information Start: 01/28/19 17:17 Freq: Status: Active Protocol: Document 03/05/19 16:00 EA (Rec: 03/05/19 16:05 EA [id number]) Out-Patient Physical Therapy Visit Information Visit Information Visit Start Time 15:15 Visit Stop Time 16:10 Visit Number 9 Number of PUBLICATION EDITOR Visits 4 PT-OP-B Current Condition Start: 01/28/19 17:17 Freq: Status: Active Protocol: Document 01/28/19 17:20 EA (Rec: 01/28/19 17:36 EA [id number]) Current Condition History of Current Condition Onset Date Chronic 7 years ago History of Current Condition Patient reports present condition started seven years ago with no known significant injury or medical history. Patient states that common OTC pain meds managed pain and lately she has been using medical marijuana to improved her function everyday. She mentioned feels at this time that she is dependent on medical marijuana and that is why she is seeking physical therapy services. Pt reports morning stiffness and difficulty in mobility is common. She denies any numbness or loss of function to both LE. She feels the whole back and posterior neck are tight and sore. 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 Prior Treatments and Tests OTC and Medical Marijuana Future Testing and Treatments Planned None identified Treatment Goals Patient/Caregiver Goals Patient would like to reduce pain to at least 2/10 and strengthen core muscle. 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 Baseline Function- Recreation/Hobbies Wall climbing 3 x wk Current Functional Impairments (Reported) Functional Limitations- ADL's Indep Functional Limitations- Mobility/Gait Indep Functional Limitations- Work/School Limited with long hours of standing and bending Functional Limitations- Recreation/ Unable to to perform > 2x/wk Hobbies of wall climbing due to increased of pain Personal Factors Other Personal Factors That May Effect Depression Therapy/Recovery PT-OP-C Subjective Start: 01/28/19 17:17 Freq: Status: Active Protocol: Document 03/05/19 16:00 EA (Rec: 03/05/19 16:05 EA [id number]) OP-PT Subjective Patient Comments Patient Comments Pt reports did her camel and cat stretches and feels it is helping lot when back is aching; states less pain frequency in the morning and feels that she is much improved since the initial session. Patient Reported Progress Improving PT-OP-G Mobility & Gait Start: 01/28/19 17:17 Freq: Status: Active Protocol: Document 01/29/19 17:00 EA (Rec: 01/30/19 07:30 EA [id number]) OP Gait Assessment Comments Gait Comments WFL PT-OP-J Posture/Palpation/Skin Start: 01/28/19 17:17 Freq: Status: Active Protocol: Document 01/29/19 17:00 EA (Rec: 01/30/19 07:30 EA [id number]) Posture Evaluation Comments Posture Comments Increased lumbar lordosis PT-OP-K Range of Motion Start: 01/28/19 17:17 Freq: Status: Active Protocol: Document 01/29/19 17:00 EA (Rec: 01/30/19 07:30 EA [id number]) Lumbar Spine Range of Motion Lumbar Spine Active Percentage Testing Position Standing Flexion 90 Extension 85 Rotation Left 90 Rotation Right 90 Lateral Flexion Left 60 Lateral Flexion Right 50 ROM Limitations Soft Tissue Tightness Pain PT-OP-L Special Tests Start: 01/28/19 17:17 Freq: Status: Active Protocol: Document 01/29/19 17:00 EA (Rec: 01/30/19 07:30 EA [id number]) Special Tests Lumbar Spine Special Tests Other- 1 Test Results Factes posterior quadrant + Straight Leg Raise Test Results + Stork Test Test Results - Prone Instability Test Test Results + PT-OP-M Strength Start: 01/28/19 17:17 Freq: Status: Active Protocol: Document 01/28/19 17:20 EA (Rec: 01/28/19 17:36 EA [id number]) Hip Strength Hip Manual Muscle Testing Right Reason Not Measured WFL Left Reason Not Measured WFL Knee Strength Knee Manual Muscle Testing Right Reason Not Measured WFL Left Reason Not Measured WFL PT-OP-Q Treatments Start: 01/28/19 17:17 Freq: Status: Active Protocol: Document 03/07/19 15:19 EA (Rec: 03/07/19 15:22 EA [id number]) Therapeutic Exercises Supine Exercises PPT Supine Exercise Name PPT in hooklying Side bilateral Reps/Minutes x10 Comments tactile cuing 4 Supine Exercise Name PPT with marches Side bilateral Reps/Minutes 10x 3 Supine Exercise Name Lumbar rotation stretch Side bilateral Reps/Minutes x15SH x 2 reps 2 Supine Exercise Name BKTC Side bilateral Reps/Minutes x15SH x 2 reps 1 Supine Exercise Name SKTC Side bilateral Reps/Minutes x15SH x 2 reps Prone Exercises 2 Prone Exercise Name Alternate arm and hip extension Side bilateral Reps/Minutes x 10 reps x 2 sets 1 Prone Exercise Name Back extension Reps/Minutes x 15 reps x 2 Other Exercises cat/cow Other Exercise Name cat/cow stretch Reps/Minutes 10x Quadruped TA Other Exercise Name Quadruped Transverse abdominal activation Side bilateral Reps/Minutes 6 min Comments tactile cuing Manual Therapy Treatment Soft Tissue Mobilization 1 Body Location B rhomboids, UT, LT, lumbar paraspinals and QL Mobilization Type Myofascial Release Rolling Sustained Pressure Intensity/Depth Moderate Body Position Prone PT-OP-R Modalities Start: 01/31/19 15:28 Freq: Status: Active Protocol: Document 03/07/19 15:19 EA (Rec: 03/07/19 15:22 EA [id number]) Electric Stimulation Electric Stimulation Interferential Current (IFC) Body Location Lumbosacral and thoracic Duration (Minutes) 10 Contraction Type Normal Patient Position Prone Combined With Heat/Cold Hot Pack PT-OP-T Assessment and Plan Start: 01/28/19 17:17 Freq: Status: Active Protocol: Document 03/07/19 15:49 EA (Rec: 03/07/19 15:50 EA [id number]) Physical Therapy Assessment Assessment Summary Assessment Improved exercises tolerance and decreased tenderpoints to low back area at this time. Excellent progress at this time. Physical Therapy Plan Next Visit Focus/Plan Next Note Type Treatment Note Next Visit Plan Advanced as tolerated.
--- NOTE | 2019-03-19 17:15 | PT.OTN ---
Current Diagnoses Strain of muscle, fascia and tendon of lower back, initial encounter (03/19/19) Physical Therapy Treatment Note PT-OP-A Visit Information Start: 01/28/19 17:17 Freq: Status: Active Protocol: Document 03/19/19 16:40 EA (Rec: 03/19/19 16:47 EA [id number]) Out-Patient Physical Therapy Visit Information Visit Information Visit Type Treatment Note Visit Note Progress note Visit Start Time 16:00 Visit Stop Time 16:50 Visit Number 12 Number of STATION SUPERVISOR Visits 4 PT-OP-B Current Condition Start: 01/28/19 17:17 Freq: Status: Active Protocol: Document 01/28/19 17:20 EA (Rec: 01/28/19 17:36 EA [id number]) Current Condition History of Current Condition Onset Date Chronic 7 years ago History of Current Condition Patient reports present condition started seven years ago with no known significant injury or medical history. Patient states that common OTC pain meds managed pain and lately she has been using medical marijuana to improved her function everyday. She mentioned feels at this time that she is dependent on medical marijuana and that is why she is seeking physical therapy services. Pt reports morning stiffness and difficulty in mobility is common. She denies any numbness or loss of function to both LE. She feels the whole back and posterior neck are tight and sore. 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 Prior Treatments and Tests OTC and Medical Marijuana Future Testing and Treatments Planned None identified Treatment Goals Patient/Caregiver Goals Patient would like to reduce pain to at least 2/10 and strengthen core muscle. 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 Baseline Function- Recreation/Hobbies Wall climbing 3 x wk Current Functional Impairments (Reported) Functional Limitations- ADL's Indep Functional Limitations- Mobility/Gait Indep Functional Limitations- Work/School Limited with long hours of standing and bending Functional Limitations- Recreation/ Unable to to perform > 2x/wk Hobbies of wall climbing due to increased of pain Personal Factors Other Personal Factors That May Effect Depression Therapy/Recovery PT-OP-C Subjective Start: 01/28/19 17:17 Freq: Status: Active Protocol: Document 03/19/19 16:40 EA (Rec: 03/19/19 16:47 EA [id number]) OP-PT Subjective Patient Comments Patient Comments Pt states went to a concert and did alot of jumping and dancing; states low back is quite sore today. She feels that she is much improved since the last visit. Patient Reported Progress Improving PT-OP-G Mobility & Gait Start: 01/28/19 17:17 Freq: Status: Active Protocol: Document 01/29/19 17:00 EA (Rec: 01/30/19 07:30 EA [id number]) OP Gait Assessment Comments Gait Comments WFL PT-OP-J Posture/Palpation/Skin Start: 01/28/19 17:17 Freq: Status: Active Protocol: Document 01/29/19 17:00 EA (Rec: 01/30/19 07:30 EA [id number]) Posture Evaluation Comments Posture Comments Increased lumbar lordosis PT-OP-K Range of Motion Start: 01/28/19 17:17 Freq: Status: Active Protocol: Document 01/29/19 17:00 EA (Rec: 01/30/19 07:30 EA [id number]) Lumbar Spine Range of Motion Lumbar Spine Active Percentage Testing Position Standing Flexion 90 Extension 85 Rotation Left 90 Rotation Right 90 Lateral Flexion Left 60 Lateral Flexion Right 50 ROM Limitations Soft Tissue Tightness Pain PT-OP-L Special Tests Start: 01/28/19 17:17 Freq: Status: Active Protocol: Document 01/29/19 17:00 EA (Rec: 01/30/19 07:30 EA [id number]) Special Tests Lumbar Spine Special Tests Other- 1 Test Results Factes posterior quadrant + Straight Leg Raise Test Results + Stork Test Test Results - Prone Instability Test Test Results + PT-OP-M Strength Start: 01/28/19 17:17 Freq: Status: Active Protocol: Document 01/28/19 17:20 EA (Rec: 01/28/19 17:36 EA [id number]) Hip Strength Hip Manual Muscle Testing Right Reason Not Measured WFL Left Reason Not Measured WFL Knee Strength Knee Manual Muscle Testing Right Reason Not Measured WFL Left Reason Not Measured WFL PT-OP-Q Treatments Start: 01/28/19 17:17 Freq: Status: Active Protocol: Document 03/19/19 16:40 EA (Rec: 03/19/19 16:47 EA [id number]) Cardio Equipment Recumbent Bicycle Duration (Minutes) 5 Resistance 4 Therapeutic Exercises Supine Exercises PPT Supine Exercise Name PPT in hooklying Side bilateral Reps/Minutes x10 x 2 sets 4 Supine Exercise Name Bridge with marches Side bilateral Reps/Minutes 10x x 2 sets 3 Supine Exercise Name Lumbar rotation stretch Side bilateral Reps/Minutes x15SH x 2 reps 2 Supine Exercise Name BKTC Side bilateral Reps/Minutes x15SH x 2 reps 1 Supine Exercise Name SKTC Side bilateral Reps/Minutes x15SH x 2 reps Prone Exercises 2 Prone Exercise Name Alternate arm and hip extension Side bilateral Reps/Minutes x 10 reps x 2 sets 1 Prone Exercise Name Back extension Reps/Minutes x 15 reps x 2 Comments over the pillows Other Exercises cat/cow Other Exercise Name cat/cow stretch Reps/Minutes 10x Manual Therapy Treatment Soft Tissue Mobilization 1 Body Location B rhomboids, UT, LT, lumbar paraspinals and QL Mobilization Type Myofascial Release Rolling Sustained Pressure Intensity/Depth Deep Body Position Prone PT-OP-R Modalities Start: 01/31/19 15:28 Freq: Status: Active Protocol: Document 03/19/19 16:40 EA (Rec: 03/19/19 16:47 EA [id number]) Hot Pack/Cold Pack Treatment Hot Pack Location C/S & L/S Patient Position Prone Treatment Duration (minutes) 10 Patient Tolerance Good PT-OP-T Assessment and Plan Start: 01/28/19 17:17 Freq: Status: Active Protocol: Document 03/19/19 16:40 EA (Rec: 03/19/19 16:47 EA [id number]) Physical Therapy Assessment Impairments Impairments Pain Posture Soft Tissue Mobility Goals Four Impairment Impaired sleeping Jail Goal (LTG) Patient will sleep > 6 hours without symptoms LTG Duration 2 wks (excellent improvement) Three Impairment Impaired sitting tolerance Nuclear Powerplant Mechanic Goal (LTG) Patient allan sit > on different surface > 2 hours without increase in symptoms LTG Duration 2 wks (Excellent improvement) Two Impairment Impaired posture Jail Goal (LTG) Patient exhibits near to normal posture to improve function and prevent muscular imbalances LTG Duration 2 wks (excellent improvement) One Impairment Oswestry low back pain scale of 19/50 Nuclear Powerplant Mechanic Goal (LTG) Patient will have Oswetry score of <10/50 LTG Duration 2 wks (excellent improvement) Assessment Summary Assessment Pt demonstrates improved lumbar functional mobility and ROM with no discomfort noted during therex. Overall patient shown excellent improvement. Patient to discharge to home exercises program next visit. Physical Therapy Plan Frequency and Duration Frequency of Treatment 1x/Week Duration of Treatment 2 Plan of Care Start Date 03/19/19 Plan of Care End Date 04/02/19 Therapeutic Interventions Therapeutic Interventions Home Exercise Program Patient/Caregiver Education Self-Care/Home Management Therapeutic Exercises Next Visit Focus/Plan Next Note Type Discharge Summary Next Visit Plan Discharge to [facility]
--- NOTE | 2019-03-19 17:16 | PT.OPPOC ---
Current Diagnoses Strain of muscle, fascia and tendon of lower back, initial encounter (03/19/19) Provider Visit Care Team Role Provider Type MARGOT Marmolejo Attending Provider Advanced Power Transformer Assembler Primary Care Provider Specialty: Family Practice Address: [address] [place] [address], [id number] Email: Plan Of Care PT-OP-T Assessment and Plan Start: 01/28/19 17:17 Freq: Status: Active Protocol: Document 03/19/19 16:40 EA (Rec: 03/19/19 16:47 EA [id number]) Physical Therapy Assessment Impairments Impairments Pain Posture Soft Tissue Mobility Goals Four Impairment Impaired sleeping Vice President Compliance Goal (LTG) Patient will sleep > 6 hours without symptoms LTG Duration 2 wks (excellent improvement) Three Impairment Impaired sitting tolerance Vice President Compliance Goal (LTG) Patient allan sit > on different surface > 2 hours without increase in symptoms LTG Duration 2 wks (Excellent improvement) Two Impairment Impaired posture Vice President Compliance Goal (LTG) Patient exhibits near to normal posture to improve function and prevent muscular imbalances LTG Duration 2 wks (excellent improvement) One Impairment Oswestry low back pain scale of 19/50 Halfway Goal (LTG) Patient will have Oswetry score of <10/50 LTG Duration 3 wks (excellent improvement) Assessment Summary Assessment Pt demonstrates improved lumbar functional mobility and ROM with no discomfort noted during therapeutic exercises. Overall patient shown excellent improvement. Patient to discharge to home exercises program next visit. Physical Therapy Plan Frequency and Duration Frequency of Treatment 1x/Week Duration of Treatment 2 Plan of Care Start Date 03/19/19 Plan of Care End Date 04/02/19 Therapeutic Interventions Therapeutic Interventions Home Exercise Program Patient/Caregiver Education Self-Care/Home Management Therapeutic Exercises Next Visit Focus/Plan Next Note Type Discharge Summary Next Visit Plan Discharge to [facility] Plan of Care Dates Plan of Care Start Date 03/19/19 Plan of Care End Date 04/02/19 Please Sign and Return: I have reviewed this Plan of Care and certify that the skilled therapy services above are required to meet the patient?s needs. Physician Signature Date Printed Name and Credentials Clinical Instructor Signature Printed Name and Credentials
--- NOTE | 2019-03-21 17:35 | PT.OTN ---
Current Diagnoses Strain of muscle, fascia and tendon of lower back, initial encounter (03/21/19) Physical Therapy Treatment Note PT-OP-A Visit Information Start: 01/28/19 17:17 Freq: Status: Active Protocol: Document 03/21/19 16:41 EA (Rec: 03/21/19 16:49 EA [id number]) Out-Patient Physical Therapy Visit Information Visit Information Visit Type Treatment Note Visit Note Progress note Visit Start Time 16:00 Visit Stop Time 16:48 Visit Number 13 Number of STORE OPERATIONS SPECIALIST Visits 4 PT-OP-B Current Condition Start: 01/28/19 17:17 Freq: Status: Active Protocol: Document 01/28/19 17:20 EA (Rec: 01/28/19 17:36 EA [id number]) Current Condition History of Current Condition Onset Date Chronic 7 years ago History of Current Condition Patient reports present condition started seven years ago with no known significant injury or medical history. Patient states that common OTC pain meds managed pain and lately she has been using medical marijuana to improved her function everyday. She mentioned feels at this time that she is dependent on medical marijuana and that is why she is seeking physical therapy services. Pt reports morning stiffness and difficulty in mobility is common. She denies any numbness or loss of function to both LE. She feels the whole back and posterior neck are tight and sore. 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 Prior Treatments and Tests OTC and Medical Marijuana Future Testing and Treatments Planned None identified Treatment Goals Patient/Caregiver Goals Patient would like to reduce pain to at least 2/10 and strengthen core muscle. 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 Baseline Function- Recreation/Hobbies Wall climbing 3 x wk Current Functional Impairments (Reported) Functional Limitations- ADL's Indep Functional Limitations- Mobility/Gait Indep Functional Limitations- Work/School Limited with long hours of standing and bending Functional Limitations- Recreation/ Unable to to perform > 2x/wk Hobbies of wall climbing due to increased of pain Personal Factors Other Personal Factors That May Effect Depression Therapy/Recovery PT-OP-C Subjective Start: 01/28/19 17:17 Freq: Status: Active Protocol: Document 03/21/19 16:41 EA (Rec: 03/21/19 16:49 EA [id number]) OP-PT Subjective Patient Comments Patient Comments Pt reports feels improved posture and very less frequent back symptoms; states she ready to discharge and would like to know more about home exercises. Patient Reported Progress Improving Patient Questionnaires Oswestry Low Back Index Oswestry Score 0 Oswestry Impairment 0% Impaired (Score 0) PT-OP-G Mobility & Gait Start: 01/28/19 17:17 Freq: Status: Active Protocol: Document 01/29/19 17:00 EA (Rec: 01/30/19 07:30 EA [id number]) OP Gait Assessment Comments Gait Comments WFL PT-OP-J Posture/Palpation/Skin Start: 01/28/19 17:17 Freq: Status: Active Protocol: Document 01/29/19 17:00 EA (Rec: 01/30/19 07:30 EA [id number]) Posture Evaluation Comments Posture Comments Increased lumbar lordosis PT-OP-K Range of Motion Start: 01/28/19 17:17 Freq: Status: Active Protocol: Document 01/29/19 17:00 EA (Rec: 01/30/19 07:30 EA [id number]) Lumbar Spine Range of Motion Lumbar Spine Active Percentage Testing Position Standing Flexion 90 Extension 85 Rotation Left 90 Rotation Right 90 Lateral Flexion Left 60 Lateral Flexion Right 50 ROM Limitations Soft Tissue Tightness Pain PT-OP-L Special Tests Start: 01/28/19 17:17 Freq: Status: Active Protocol: Document 01/29/19 17:00 EA (Rec: 01/30/19 07:30 EA [id number]) Special Tests Lumbar Spine Special Tests Other- 1 Test Results Factes posterior quadrant + Straight Leg Raise Test Results + Stork Test Test Results - Prone Instability Test Test Results + PT-OP-M Strength Start: 01/28/19 17:17 Freq: Status: Active Protocol: Document 01/28/19 17:20 EA (Rec: 01/28/19 17:36 EA [id number]) Hip Strength Hip Manual Muscle Testing Right Reason Not Measured WFL Left Reason Not Measured WFL Knee Strength Knee Manual Muscle Testing Right Reason Not Measured WFL Left Reason Not Measured WFL PT-OP-Q Treatments Start: 01/28/19 17:17 Freq: Status: Active Protocol: Document 03/21/19 16:41 EA (Rec: 03/21/19 16:49 EA [id number]) Cardio Equipment Recumbent Bicycle Duration (Minutes) 5 Resistance 4 Therapeutic Exercises Supine Exercises 5 Supine Exercise Name Sit ups Reps/Minutes x 15 reps x 2 set Comments HEP comp PPT Supine Exercise Name PPT in hooklying Side bilateral Reps/Minutes x10 x 2 sets Comments with leg up 4 Supine Exercise Name Bridge with marches Side bilateral Reps/Minutes 10x x 2 sets Comments HEP comp 3 Supine Exercise Name Lumbar rotation stretch Side bilateral Reps/Minutes x15SH x 2 reps 2 Supine Exercise Name BKTC Side bilateral Reps/Minutes x15SH x 2 reps Comments HEP comp 1 Supine Exercise Name SKTC Side bilateral Reps/Minutes x15SH x 2 reps Comments HEP comp Prone Exercises 2 Prone Exercise Name Alternate arm and hip extension Side bilateral Reps/Minutes x 10 reps x 2 sets Comments HEP comp 1 Prone Exercise Name Back extension Reps/Minutes x 15 reps x 2 Comments HEP comp Other Exercises cat/cow Other Exercise Name cat/cow stretch Reps/Minutes 10x x 2 sets Comments HEP comp quadruped arm lifts Other Exercise Name OAL Side bilateral Reps/Minutes 10x x 2 Comments HEP comp Self-Care/Home Management Treatment Education Patient Education Body Mechanics Home Exercise Program Pain Management Posture Other Education Discussed work body mechanics, dicussed regular fitness exercises. PT-OP-R Modalities Start: 01/31/19 15:28 Freq: Status: Active Protocol: Document 03/19/19 16:40 EA (Rec: 03/19/19 16:47 EA [id number]) Hot Pack/Cold Pack Treatment Hot Pack Location C/S & L/S Patient Position Prone Treatment Duration (minutes) 10 Patient Tolerance Good PT-OP-T Assessment and Plan Start: 01/28/19 17:17 Freq: Status: Active Protocol: Document 03/21/19 16:41 EA (Rec: 03/21/19 16:49 EA [id number]) Physical Therapy Assessment Assessment Summary Assessment Patient is discharge upon request. Patient is rehabilitated at discharge date. Physical Therapy Plan Discharge Physical Therapy Discharge Reasons Goals Met Discharge Comments Patient request
--- NOTE | 2019-03-21 17:35 | PT.OPDS ---
Current Diagnoses Strain of muscle, fascia and tendon of lower back, initial encounter (03/21/19) Provider Visit Care Team Role Provider Type MARGOT Marmolejo Attending Provider Advanced Larry Operator Primary Care Provider Specialty: Family Practice Address: [address] [place] [address], [facility] Email: Visit Number Visit Number 13 Discharge Summary PT-OP-B Current Condition Start: 01/28/19 17:17 Freq: Status: Active Protocol: Document 01/28/19 17:20 EA (Rec: 01/28/19 17:36 EA [id number]) Current Condition History of Current Condition Onset Date Chronic 7 years ago History of Current Condition Patient reports present condition started seven years ago with no known significant injury or medical history. Patient states that common OTC pain meds managed pain and lately she has been using medical marijuana to improved her function everyday. She mentioned feels at this time that she is dependent on medical marijuana and that is why she is seeking physical therapy services. Pt reports morning stiffness and difficulty in mobility is common. She denies any numbness or loss of function to both LE. She feels the whole back and posterior neck are tight and sore. 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 Prior Treatments and Tests OTC and Medical Marijuana Future Testing and Treatments Planned None identified Treatment Goals Patient/Caregiver Goals Patient would like to reduce pain to at least 2/10 and strengthen core muscle. 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 Baseline Function- Recreation/Hobbies Wall climbing 3 x wk Current Functional Impairments (Reported) Functional Limitations- ADL's Indep Functional Limitations- Mobility/Gait Indep Functional Limitations- Work/School Limited with long hours of standing and bending Functional Limitations- Recreation/ Unable to to perform > 2x/wk Hobbies of wall climbing due to increased of pain Personal Factors Other Personal Factors That May Effect Depression Therapy/Recovery PT-OP-C Subjective Start: 01/28/19 17:17 Freq: Status: Active Protocol: Document 03/21/19 16:41 EA (Rec: 03/21/19 16:49 EA [id number]) OP-PT Subjective Patient Comments Patient Comments Pt reports feels improved posture and very less frequent back symptoms; states she ready to discharge and would like to know more about home exercises. Patient Reported Progress Improving Patient Questionnaires Oswestry Low Back Index Oswestry Score 0 Oswestry Impairment 0% Impaired (Score 0) PT-OP-G Mobility & Gait Start: 01/28/19 17:17 Freq: Status: Active Protocol: Document 01/29/19 17:00 EA (Rec: 01/30/19 07:30 EA [id number]) OP Gait Assessment Comments Gait Comments WFL PT-OP-J Posture/Palpation/Skin Start: 01/28/19 17:17 Freq: Status: Active Protocol: Document 01/29/19 17:00 EA (Rec: 01/30/19 07:30 EA [id number]) Posture Evaluation Comments Posture Comments Increased lumbar lordosis PT-OP-K Range of Motion Start: 01/28/19 17:17 Freq: Status: Active Protocol: Document 01/29/19 17:00 EA (Rec: 01/30/19 07:30 EA [id number]) Lumbar Spine Range of Motion Lumbar Spine Active Percentage Testing Position Standing Flexion 90 Extension 85 Rotation Left 90 Rotation Right 90 Lateral Flexion Left 60 Lateral Flexion Right 50 ROM Limitations Soft Tissue Tightness Pain PT-OP-L Special Tests Start: 01/28/19 17:17 Freq: Status: Active Protocol: Document 01/29/19 17:00 EA (Rec: 01/30/19 07:30 EA [id number]) Special Tests Lumbar Spine Special Tests Other- 1 Test Results Factes posterior quadrant + Straight Leg Raise Test Results + Stork Test Test Results - Prone Instability Test Test Results + PT-OP-M Strength Start: 01/28/19 17:17 Freq: Status: Active Protocol: Document 01/28/19 17:20 EA (Rec: 01/28/19 17:36 EA [id number]) Hip Strength Hip Manual Muscle Testing Right Reason Not Measured WFL Left Reason Not Measured WFL Knee Strength Knee Manual Muscle Testing Right Reason Not Measured WFL Left Reason Not Measured WFL PT-OP-T Assessment and Plan Start: 01/28/19 17:17 Freq: Status: Active Protocol: Document 03/21/19 16:41 EA (Rec: 03/21/19 16:49 EA [id number]) Physical Therapy Assessment Assessment Summary Assessment Patient is discharge upon request. Patient is rehabilitated at discharge date. Physical Therapy Plan Discharge Physical Therapy Discharge Reasons Goals Met Discharge Comments Patient request
== END 2019-03-22 12:25 ==
LOC: PHYS 16:00
PROVIDERS: PCP Nurse Practitioner Family; Visit Provider Nurse Practitioner Family
DX: S39.012A Strain of muscle, fascia and tendon of lower back, initial encounter (principal)
CPT/HCPCS: 97014; 97110; 97140; 97161; 97535; G0283

== ENCOUNTER 2019-06-30 | Emergency (ER) | payer SELFPAY ==
[2019-06-30 00:06] VITALS: BP 132/79; PULSE 99; RESP 18; TEMP 36.8; O2SAT 100; BMI 22.1
--- NOTE | 2019-06-30 00:10 | PC.NURSE ---
Pt soaking hand in [facility] soap and water basin.
--- NOTE | 2019-06-30 00:38 | ED_ITS ---
HPI - Wound/Laceration General Chief Complaint: Wound/Laceration Stated Complaint: Cut right hand Time Seen by Provider: 06/30/19 00:06 Source: patient Mode of arrival: ambulatory Limitations: no limitations History of Present Illness HPI narrative: Otherwise healthy 24-year-old female up-to-date on her tetanus here for evaluation of a cut to her right hand. She states that she cut it on a bowl prior to arrival. Related Data Home Medications Medication Instructions Recorded Confirmed trazodone PO 01/15/19 01/15/19 Previous Rx's Medication Instructions Recorded citalopram 20 mg tablet 20 mg PO DAILY #30 tab 01/01/19 Allergies Allergy/AdvReac Type Severity Reaction Status Date / Time No Known Drug Allergies Allergy Verified 01/15/19 16:17 Review of Systems Constitutional Denies fever(s) Musculoskeletal Denies tingling Integumentary/Breasts Comments: Cut to right hand Neurologic Denies tingling and Denies paresthesias Hematologic/Lymphatic Denies easy bleeding and Denies easy bruising [facility] Medical History Acne (Chronic ~2011) Anxiety (Chronic ~2009) Chronic back pain (Chronic ~2017) Depression (Chronic ~2009) Liver disease (Chronic ~2014) Migraines (Chronic ~2009) Ovarian cyst (Chronic) Painful menstrual periods (Chronic) Pancreatitis (Chronic ~2014) Shoulder pain (Chronic ~2016) Vision disorder (Chronic) Surgical History (Updated 02/17/19 @ 19:17 by Nighat Marks) [place] teeth removed (Resolved ~12/07/18) History of tonsillectomy Family History (Updated 02/17/19 @ 19:19 by Nighat Marks) Father Hyperlipidemia Hypertension Mother Mental health problem Brother Mental health problem Social History Smoking Status: Current every day smoker alcohol intake: never substance use type: marijuana Social History Smoking Status: Current every day smoker alcohol intake: never substance use type: marijuana Exam Initial Vital Signs Initial Vital Signs: Vital Signs Temperature 98.2 F 06/30/19 00:06 Pulse Rate 99 H 06/30/19 00:06 Respiratory Rate 18 06/30/19 00:06 Blood Pressure 132/79 06/30/19 00:06 Pulse Oximetry 100 06/30/19 00:06 Const General: cooperative, well developed and well groomed Orientation: alert and awake Cardio Pulses: radial pulses present on the right GI Inspection: non-distended Palpation: soft Skin Other: 2 cm cut to the ulnar aspect of the right hand. Neuro Sensory Exam: no sensory deficits noted Extrem General: capillary refill normal Procedures Laceration Repair Laceration 1: Site: hand Side (If applicable): right Size (cm): 2 Description: linear Depth: simple, single layer Local Anesthetic: lidocaine 1% and with epi Amount of anesthesia used (mL): 4 Pre-repair: wound explored and irrigated extensively Skin layer closed with: nylon Size (cm): 4-0 Number of sutures: 4 Technique: simple, interrupted Course Orders Ordered: Discontinued Medications Bacitracin (Bacitracin) 1 applic TOP NOW ONE Stop: 06/30/19 00:57 Last Admin: 06/30/19 01:09 Dose: 1 applic Vital Signs - 8 hr 06/30/19 00:06 06/30/19 00:59 Temperature 98.2 F Pulse Rate 99 H 96 H Respiratory Rate 18 16 Blood Pressure 132/79 Blood Pressure [Left Arm] 118/81 Pulse Oximetry 100 97 MDM - Wound/Laceration MDM Narrative Medical decision making narrative: Patient is up-to-date on tetanus. She was informed that there would be a scar despite our interventions here in the ER. We discussed treatment options to include Steri-Strips and Dermabond versus stitches in the patient opted for stitches. It was closed as described above. She was given care instructions and return precautions. She expressed understan ding and agreement with plan. Discharge Plan Departure Patient Disposition: Home Clinical Impression: Laceration Discharge Date/Time: 06/30/19 01:24 Interventions: ED Discharge Assessment Last Done: 06/30/19 01:13 Instructions: DI for Minor Laceration Activity Restrictions/Additional Instructions: The stitches do need to be removed in 7-10 days. Tomorrow you can take the bandage off that was placed here in the emergency department. You can wash your hands like normal. You can use soap and water like normal. you can return to the emergency department and point for new or worsening symptoms Prescriptions: No Action trazodone PO RF: 0 citalopram 20 mg tablet 20 mg PO DAILY Qty: 30 RF: 0 Referrals: Gail Peña ARNP [Primary Care Provider] -
[2019-06-30 00:59] VITALS: BP 118/81; PULSE 96; RESP 16; O2SAT 97
[2019-06-30] MEDS: BACITRACIN OINT 0.9 GM PCKT 1 APPLIC TOP (01:09)
== END 2019-06-30 01:24 | disposition home or self-care (01) ==
PROVIDERS: Emergency Provider Emergency Medicine; PCP Nurse Practitioner Family
DX: S61.411A Laceration without foreign body of right hand, initial encounter (principal)
CPT/HCPCS: 12001; 99282; 99283

== ENCOUNTER 2021-04-15 10:35 | Emergency (ER) | payer OTHER, SELFPAY ==
[2021-04-15 10:40] VITALS: BP 134/73; PULSE 98; RESP 15; TEMP 36.7; O2SAT 100; BMI 22.1
--- NOTE | 2021-04-15 11:00 | DI.RAD.S_ITS ---
PROCEDURE: XR ACUTE ABDOMEN SERIES INDICATIONS: Abdominal pain TECHNIQUE: One view chest and two views of the abdomen were acquired. COMPARISON: None. FINDINGS: Surgical changes and devices: None. Chest: Lungs are clear. Heart size is normal. No pleural effusions. No pneumoperitoneum. Abdomen: Bowel gas pattern is normal. No suspicious calcifications. Visualized solid organ contours appear normal. Bones: No suspicious bony lesions. IMPRESSION: No evidence acute abdominal process. No evidence acute pulmonary process. Dictated by: Armen Matthews M.D. on 04/15/2021 at 11:29 Approved by: Armen Matthews M.D. on 04/15/2021 at 11:30
[2021-04-15 11:04] LABS: Add Manual Diff / Slide Review NO; Basophils Absolute Auto 0 /uL (0-100); Eosinophils Absolute Auto 200 /uL (0-450); Eosinophils Percent Auto 4.3 % (2-4); Hematocrit 39.4 % (36-46); Hemoglobin 13.1 g/dL (12.0-16.0); Lymphocytes Absolute Auto 1600 /uL (1100-4500); Lymphocytes Percent Auto 36.9 % (25-40); Mean Corpuscular HGB Conc 33.2 % (30-36); Mean Corpuscular Hemoglobin 29.9 PG (26-34); Monocytes Absolute Auto 400 /uL (0-900); Monocytes Percent Auto 9.4 % (3-14); Neutrophils Absolute Auto 2100 /uL (1500-7000); Neutrophils Percent Auto 48.4 % (50-75); Platelet Count 271 X10^3/uL (150-400); Red Blood Cell Count 4.38 X10^6/uL (4.0-5.2); Red Cell Distribution Width 13.7 % (11.6-14.8); White Blood Cell Count 4.4 X10^3/uL (4.5-11.0)
[2021-04-15 11:16] LABS: Alanine Aminotransferase 11 IU/L (<35); Albumin 4.3 g/dL (3.5-5.0); Albumin Globulin Ratio 1.6 (1.0-2.8); Alkaline Phosphatase 48 U/L (38-126); Aspartate Aminotransferase 23 IU/L (14-36); BUN Creatinine Ratio 11.7 (6-22); Bilirubin Total 0.5 mg/dL (0.2-1.3); Blood Urea Nitrogen 7 mg/dL (7-17); Calcium 9.4 mg/dL (8.4-10.2); Carbon Dioxide 26 mmol/L (22-32); Chloride 104 mmol/L (98-107); Estimated Glomerular Filt Rate > 60.0 mL/min (>60); Globulin 2.7 g/dL (1.7-4.1); Glucose 96 mg/dL (70-100); HEMOLYSIS < 15 (0-50); Lipase 58 U/L (23-300); Potassium 3.7 mmol/L (3.4-5.1); Sodium 137 mmol/L (137-145)
--- NOTE | 2021-04-15 11:32 | ED.ABDPAIN ---
HPI - Abdominal Pain General Chief Complaint: Abdominal Pain Stated Complaint: stomach issues Time Seen by Provider: 04/15/21 10:40 Source: patient Mode of arrival: Ambulatory Limitations: no limitations History of Present Illness HPI narrative: 26-year-old female nonsmoker with noncontributory medical history presents at the request of her primary care provider for ongoing GI issues which have spanned the past 2 years. She states that up until the past few weeks or months she has had frequent episodes of epigastric pain that seems to be worsened by eating. She often is nauseated and has a decreased appetite. She has had episodes of constipation and diarrhea that seem to come and go regardless of her diet. She has seen primary care providers and has been encouraged to alter her diet various ways. She went to see her PCP today and was found to be dizzy and lightheaded upon standing and had positive orthostatics in the office hence her decisions as send patient to us. She denies any fever or chills. She denies dysuria, frequency or urgency. She denies any vaginal bleeding or discharge MD complaint: abdominal pain Onset (ago): year(s) Pain Consistency: constant Location: RUQ and epigastric Severity: moderate Quality: cramping, stabbing and aching Radiation: none Migration to: RUQ Relieving factors: nothing Exacerbating factors: eating Associated symptoms: nausea, vomiting and diarrhea Related Data Home Medications Medication Instructions Recorded Confirmed dextroamphetamine-amphetamine 15 15 mg PO DAILY 04/15/21 04/15/21 mg tablet Previous Rx's Medication Instructions Recorded lamotrigine 100 mg tablet 100 mg PO DAILY #90 tab 04/01/20 escitalopram oxalate 10 mg tablet 10 mg PO DAILY #30 tab 05/19/20 trazodone 50 mg tablet 50 mg PO BEDTIME #30 tab 05/19/20 pantoprazole [Protonix] 40 mg PO DAILY #30 tab 04/15/21 Allergies Allergy/AdvReac Type Severity Reaction Status Date / Time No Known Drug Allergies Allergy Verified 04/15/21 10:50 Review of Systems Constitutional Constitutional: Denies chills, Denies fatigue, Denies fever(s), Denies frequent falls, Denies lethargy and Denies weakness Eyes Eyes: Denies change in vision, Denies eye discharge, Denies irritation and Denies loss of vision ENT Ears, Nose, Mouth, and Throat: Denies change in voice, Denies dizziness, Denies neck pain, Denies sore throat and Denies throat swelling Cardiovascular Cardiovascular: Denies chest pain, Denies irregular heart rhythm, Denies lightheadedness, Denies palpitations, Denies dyspnea, Denies dyspnea on exertion and Denies orthopnea Respiratory Respiratory: Denies cough, Denies dyspnea, Denies dyspnea on exertion and Denies wheezing Gastrointestinal Gastrointestinal: Reports abdominal pain, Denies change in bowel habits, Denies diarrhea, Reports nausea and Reports vomiting Musculoskeletal Musculoskeletal: Denies neck pain and Denies numbness Integumentary/Breasts Skin/Breast: Denies pruritus, Denies erythema, Denies rash and Denies wounds Neurologic Neurologic: Denies behavioral changes, Denies confusion, Denies dizziness, Denies frequent falls, Denies loss of vision, Denies numbness and Denies weakness Psychiatric Psychiatric: Denies anxiety, Denies behavioral changes, Denies confusion, Denies depression, Denies homicidal ideation and Denies suicidal ideation Endocrine Endocrine: Denies fatigue, Denies flushing and Denies palpitations Hematologic/Lymphatic Hematologic/Lymphatic: Denies easy bruising Allergic/Immunologic Allergic/Immunologic: Denies urticaria, Denies throat swelling and Denies wheezing Patient History Medical History (Updated 04/15/21 @ 12:23 by Yunier Dowd DO) Acne (~2011) Anxiety (~2009) Chronic back pain (~2018) Depression (~2009) Liver disease (~2014) Migraines (~2009) Ovarian cyst Painful menstrual periods Pancreatitis (~2014) Shoulder pain (~2017) Vision disorder Surgical History History of tonsillectomy [place] teeth removed (~12/07/18) Family History Father Hyperlipidemia Hypertension Mother Mental health problem Brother Mental health problem Social History Smoking Status: Current some day smoker alcohol intake: never substance use type: marijuana Smoking Status: Current some day smoker tobacco type: vaping alcohol intake frequency: holidays/special occasions only Substance Use Type: marijuana Exam Narrative Exam Narrative: GENERAL: [26] year old patient appears stated age. Well-developed patient, in mild distress. HEAD: Atraumatic. Normocephalic. EYES: Pupils equal round and reactive. Extraocular motions intact. No scleral icterus. No injection or drainage. ENT: Nose without bleeding, purulent drainage. Throat without erythema, tonsillar hypertrophy or exudate. Airway patent. NECK: Trachea midline. Non tender CARDIOVASCULAR: Regular rate and rhythm without murmurs, gallops, or rubs. RESPIRATORY: Clear to auscultation. Breath sounds equal bilaterally. No wheezes, rales, or rhonchi. GASTROINTESTINAL: Abdomen soft, mild tenderness epigastric, nondistended. EXTREMITIES: No edema or joint tenderness. BACK: Nontender without deformity or crepitance. No flank tenderness. NEURO: AOx3. SKIN: No rash or erythema of visible areas Initial Vital Signs Initial Vital Signs: Vital Signs Temperature 98.0 F 04/15/21 10:40 Pulse Rate 98 H 04/15/21 10:40 Respiratory Rate 15 04/15/21 10:40 Blood Pressure 134/73 04/15/21 10:40 Pulse Oximetry 100 04/15/21 10:40 Course Orders Ordered: ED Orders 04/15/21 10:52 EKG-12 Lead Stat 04/15/21 11:00 XR acute abdomen series Stat Complete Blood Count AUTO DIFF Stat Comprehensive Metabolic Panel Stat Lipase Stat 04/15/21 11:41 US abdomen limited Stat Discontinued Medications Al Hydrox/Mg Hydrox/Simethicone 20 ml/ Lidocaine HCl 15 ml 0 ml PO NOW ONE Stop: 04/15/21 11:42 Last Admin: 04/15/21 11:49 Dose: 30 ml Documented by: JALEEL Sodium Chloride (Normal Saline 0.9%) 1,000 mls @ 1,000 mls/hr IV BOLUS ONE Stop: 04/15/21 12:32 Last Infusion: 04/15/21 12:52 Dose: 0 mls/hr Documented by: Admin: 04/15/21 11:50 Dose: 1,000 mls/hr Documented by: JALEEL Vital Signs Vital signs: Vital Signs - 8 hr 04/15/21 10:40 04/15/21 12:59 Temperature 98.0 F Pulse Rate 98 H 93 H Respiratory Rate 15 Blood Pressure 134/73 117/74 Pulse Oximetry 100 100 MDM - Abdominal Pain Lab Data Result diagrams: 04/15/21 11:00 04/15/21 11:00 Labs: Lab Results 04/15/21 04/15/21 Range/Units 11:00 11:00 WBC 4.4 L (4.5-11.0) X10^3/uL RBC 4.38 (4.0-5.2) X10^6/uL Hgb 13.1 (12.0-16.0) g/dL Hct 39.4 (36-46) % MCV 90.0 (80-100) fL MCH 29.9 (26-34) PG MCHC 33.2 (30-36) % RDW 13.7 (11.6-14.8) % Plt Count 271 (150-400) X10^3/uL Neut % (Auto) 48.4 L (50-75) % Lymph % (Auto) 36.9 (25-40) % [place] % (Auto) 9.4 (3-14) % Eos % (Auto) 4.3 H (2-4) % Baso % (Auto) 1.0 (0-2) % Neut # (Auto) 2100 (4648-6148) /uL Lymph # (Auto) 1600 (5226-6451) /uL [place] # (Auto) 400 (0-900) /uL Eos # (Auto) 200 (0-450) /uL Baso # (Auto) 0 (0-100) /uL Sodium 137 (137-145) mmol/L Potassium 3.7 (3.4-5.1) mmol/L Chloride 104 (98-107) mmol/L Carbon Dioxide 26 (22-32) mmol/L BUN 7 (7-17) mg/dL Creatinine 0.60 (0.52-1.04) mg/dL Estimated GFR > 60.0 (>60) mL/min BUN/Creatinine Ratio 11.7 (6-22) Glucose 96 (70-100) mg/dL Calcium 9.4 (8.4-10.2) mg/dL Total Bilirubin 0.5 (0.2-1.3) mg/dL AST 23 (14-36) IU/L ALT 11 (<35) IU/L Alkaline Phosphatase 48 (38-126) U/L Total Protein 7.0 (6.3-8.2) g/dL Albumin 4.3 (3.5-5.0) g/dL Globulin 2.7 (1.7-4.1) g/dL Albumin/Globulin Ratio 1.6 (1.0-2.8) Lipase 58 (23-300) U/L Point of care testing: Point of Care Testing Test Results Negative Urine Dip Bedside Urine Glucose Negative Bedside Urine Bilirubin - Negative Bedside Urine Ketone - Negative Urine Specific [place] 1.010 Bedside Urine Occult Blood - Negative Bedside Urine pH 6.0 Bedside Urine Protein - Negative Bedside Urine Urobilinogen - Negative Bedside Urine Nitrite - Negative Bedside Urine Leukocytes - Negative Esterase Imaging Data Abdominal x-ray: Radiologist's Impression: [address] [id number] ReportSigned Patient: Jc MoeMHernán#: [id number]: 1995Acct:[id number]/Sex: 26 / FDate of Service: 04/15/21Loc: EDAccession Number: [id number] Procedure: XR acute abdomen series Ordering Provider: Yunier Dowd D.O. PROCEDURE: XR ACUTE ABDOMEN SERIES INDICATIONS: Abdominal pain TECHNIQUE: One view chest and two views of the abdomen were acquired. COMPARISON: None. FINDINGS: Surgical changes and devices: None. Chest: Lungs are clear. Heart size is normal. No pleural effusions. No pneumoperitoneum. Abdomen: Bowel gas pattern is normal. No suspicious calcifications. Visualized solid organ contours appear normal. Bones: No suspicious bony lesions. IMPRESSION: No evidence acute abdominal process. No evidence acute pulmonary process. Dictated by: Armen Matthews M.D. on 04/15/2021 at 11:29 Approved by: Armen Matthews M.D. on 04/15/2021 at 11:30 [facility] Narrative Medical decision making narrative: Patient with increased epigastric and right upper quadrant pain with eating for quite some time. Multiple diagnoses including gallbladder disease versus pancreatitis versus liver disease versus GERD considered. Labs and imaging would suggest against gallbladder or pancreatitis. There is some mention regarding concern of bowel obstruction, she is not actively having pain, is having bowel movements, has normal bowel sounds and x-ray suggests against any obstructive process. This seems to be most likely a nonsurgical scenario and she will be discharged with acid reducers return precautions and encouragement to obtain referral to GI as she will likely benefit from their expertise Discharge Plan Departure Patient Disposition: Home Clinical Impression: Chronic epigastric pain Instructions: DI for Epigastric Pain Activity Restrictions/Additional Instructions: *You have been diagnosed with [acute on chronic epigastric pain with very reassuring labs and imaging. No evidence of gallbladder disease, pancreatitis or bowel obstruction.] *What to do: *Please continue to take your regular medications as directed. [x ] New medication prescriptions sent to your pharmacy: [[facility] ] [ ] New medication written as a paper prescription [ ] No new medications given *Please follow up with your primary care provider in 2-3 days, call for an appointment. Let them know you were seen in the Emergency Department and that we ask that you be seen in follow up. We will electronically transmit a record of today's note if your PCP is in our system Avoid spicy foods, fatty foods, alcohol, nicotine for the next few days at least. *Return to Emergency Department if you should have any new, worsening or concerning symptoms, such as [fever greater than 101 F, shaking chills, worsening pain, persistent vomiting or other bothersome symptoms] Prescriptions: New pantoprazole [Protonix] 40 mg tablet,delayed release (DR/EC) 40 mg PO DAILY Qty: 30 RF: 0 No Action lamotrigine 100 mg tablet 100 mg PO DAILY Qty: 90 RF: 0 trazodone 50 mg tablet 50 mg PO BEDTIME Qty: 30 RF: 0 escitalopram oxalate [Lexapro] 10 mg tablet 10 mg PO DAILY Qty: 30 RF: 0 dextroamphetamine-amphetamine [Adderall] 15 mg tablet 15 mg PO DAILY RF: 0 Referrals: Gail Peña ARNP [Primary Care Provider] -
--- NOTE | 2021-04-15 11:41 | DI.US.S_ITS ---
PROCEDURE: US ABDOMEN LIMITED INDICATIONS: SEVERE EPIGASTRIC PAIN WHEN EATING TECHNIQUE: Real-time scanning was performed of the right upper quadrant, with image documentation. COMPARISON: [facility], CR, XR ACUTE ABDOMEN SERIES, 04/15/2021, 11:01. FINDINGS: Liver: Liver is normal in size and homogeneous in echotexture. Gallbladder: Nondilated. No stones or sludge. Normal gallbladder wall thickness. No pericholecystic fluid. Negative sonographic Bell's sign. Biliary ducts: Intrahepatic bile ducts are non-dilated. Extrahepatic bile duct caliber measures 2.3 mm. Normal is 6-7 mm or less in diameter, or 10 mm or less post-cholecystectomy. Pancreas: Visualized portions of the pancreas are sonographically normal. IMPRESSION: No acute abnormality identified. No gallstones. If clinically indicated consider CT abdomen pelvis with IV contrast for further evaluation. Dictated by: Eddy Katz M.D. on 04/15/2021 at 12:23 Approved by: Eddy Katz M.D. on 04/15/2021 at 12:25
[2021-04-15] MEDS: MAG HYDROX/ALUMINUM/SIMETH SUS 20 ML, LIDOCAINE VISCOUS 2% 15 ML PO (11:49)
[2021-04-15] MEDS: SODIUM CHLORIDE 0.9% 1,000 ML 1000 ML IV (11:50)
[2021-04-15 12:59] VITALS: BP 117/74; PULSE 93; O2SAT 100
== END 2021-04-15 12:59 | disposition home or self-care (01) ==
PROVIDERS: Emergency Provider Emergency Medicine; PCP Nurse Practitioner Family
DX: R10.13 Epigastric pain (principal); R11.2 Nausea with vomiting, unspecified; R19.7 Diarrhea, unspecified
CPT/HCPCS: 36415; 74022; 76705; 80053; 81003; 81025; 83690; 85025; 93005; 96360; 99284

== ENCOUNTER → 2021-07-01 09:16 | Outpatient (CLI) | payer OTHER, SELFPAY ==
[2021-07-01 10:27] LABS: COVID19 -Nasal RAPID Negative (Negative)
== END ==
PROVIDERS: PCP Nurse Practitioner Family; Referring Provider Specialist; Visit Provider Specialist
DX: Z20.822 Contact with and (suspected) exposure to COVID-19 (principal)
CPT/HCPCS: 87635; C9803

== ENCOUNTER 2021-07-02 06:50 | Day surgery (SDC) | payer OTHER, SELFPAY ==
[2021-07-02] VITALS (7 sets, daily range): BP systolic 108–122; BP diastolic 63–79; PULSE 75–103; RESP 11–16; TEMP 36.8–37.3; O2SAT 98–100; BMI 20.7
--- NOTE | 2021-07-02 | PATH_ITS ---
[facility] Accession Number: [id number] . 01 Material submitted: . PART A: duodenum - DUODNEAL PART B: stomach - RANDOM GASTRIC PART C: esophagus, E-G Junction - GE JUNCTION PART D: ileum - TERMINAL ILEUM . 01 Clinical history: . A: R/O CELIAC DISEASE . 02 Diagnosis: A. Duodenum, Biopsy: Duodenal mucosa with no diagnostic abnormality. Negative for active inflammation, features of sprue, dysplasia, or malignancy. . B. Stomach, Random Biopsies: Antral and body-type mucosa with no diagnostic abnormality. Negative for Helicobacter by immunohistochemistry. Negative for intestinal metaplasia. Negative for dysplasia and malignancy. . C. Gastroesophageal Junction, Biopsy: Squamocolumnar junctional mucosa with no diagnostic abnormality. Negative for intestinal metaplasia. Negative for dysplasia and malignancy. . D. Terminal Ileum, Biopsy: Small bowel mucosa with no diagnostic abnormality. Negative for active inflammation, dysplasia and malignancy. [facility] 07/06/2021 1444 Local . 02 Electronically signed: . Mary Golden MD, Pathologist NPI- [id number] . 01 Gross description: . Part A: DUODNEAL: Received in formalin are multiple fragment(s) of [place], soft tissue measuring 1.8 x 0.5 x 0.2 cm in aggregate submitted entirely in 1 cassette(s) Part B: RANDOM GASTRIC: Received in formalin are multiple fragment(s) of [place], soft tissue measuring 0.8 x 0.6 x 0.2 cm in aggregate submitted entirely in 1 cassette(s) Part C: GE JUNCTION: Received in formalin are multiple fragment(s) of [place], soft tissue measuring 2.4 x 0.4 x 0.2 cm in aggregate submitted entirely in 1 cassette(s) Part D: TERMINAL ILEUM: Received in formalin are multiple fragment(s) of [place], soft tissue measuring 1.4 x 0.4 x 0.1 cm in aggregate submitted entirely in 1 cassette(s) /FERNANDA 07/03/[address] [place] [address] . 02 Microscopic: . B. An immunohistochemical stain was performed to evaluate for Helicobacter organisms and is negative. The control stain showed appropriate reactivity. . C. An alcian blue stain was performed to evaluate for intestinal metaplasia and is negative. The control stain showed appropriate reactivity. . . * This test was developed and its performance characteristics determined by [facility]. It has not been cleared or approved by the U.S. Food and Drug Administration. The FDA has determined that such clearance or approval is not necessary. This test is used for clinical purposes. It should not be regarded as investigational or for research. . 02 Pathologist provided ICD-10: R10.10, R19.4 . 02 CPT . 996836, 988904, 314401, 136171, 010910, D86159 Performed at: 01 [facility] [address] [place] [address], [place], [place] [id number] MD Dalton Moon MD Phone: [phone] Performed at: 02 [facility] [address] [place] [id number] MD Mary Golden MD Phone: [phone]
[2021-07-02] MEDS: LACTATED RINGERS 1,000 ML 100 ML IV (07:26)
--- NOTE | 2021-07-02 07:45 | PM.HP.1 ---
History of Present Illness History of Present Illness Chief complaint: DX EGD/COLONOSCOPY Narrative: Patient is a woman with vague upper abdominal complaints early satiety vomiting nausea and a change in bowel habits with diarrhea and constipation. She is brought in for an EGD and colonoscopy. Patient History Medical History Acne (~2011) Anxiety (~2010) Chronic back pain (~2018) Depression (~2009) Liver disease (~2014) Migraines (~2009) Ovarian cyst Painful menstrual periods Pancreatitis (~2014) Shoulder pain (~2017) Vision disorder Surgical History History of tonsillectomy [place] teeth removed (~12/07/18) Family & Social History Family History Father Hyperlipidemia Hypertension Mother Mental health problem Brother Mental health problem Social History: household members significant other Tobacco & Substance use: Tobacco type e-cigarettes,cannabis/marijuana Smoking Status Current some day smoker alcohol intake never alcohol intake frequency holiday/special occasion Substance Use Type marijuana Meds Home Medications and Allergies Home Medications Medication Instructions Recorded Confirmed Type lamotrigine 100 mg tablet 100 mg PO DAILY #90 tab 04/01/20 05/27/21 Rx escitalopram oxalate 10 mg tablet 10 mg PO DAILY #30 tab 05/19/20 05/27/21 Rx (Lexapro) dextroamphetamine-amphetamine 15 15 mg PO DAILY 04/15/21 07/02/21 History mg tablet (Adderall) Allergies Allergy/AdvReac Type Severity Reaction Status Date / Time No Known Drug Allergies Allergy Verified 05/27/21 15:10 Review of Systems Review of Systems Narrative: Otherwise healthy. Twelve point review of systems negative Exam Vital Signs (past 8 hours): - 07/02/21 07:13 Temperature 98.3 F Pulse Rate 103 H Respiratory Rate 16 Blood Pressure 115/73 Pulse Oximetry 99 Oxygen Delivery Method Room Air Narrative Exam Narrative: Pleasant cooperative patient no apparent distress. Lungs are clear to auscultation. No rales or rhonchi. Heart regular rate and rhythm no murmur gallop. Abdomen is soft nontender without mass. No obvious hernias. Patient is alert and oriented x3. Assessment & Plan Assessment & Plan narrative: Patient with abdominal pain nausea vomiting diarrhea constipation for an EGD and colonoscopy. The risks and benefits have been discussed in the office. She appears to understand wishes to proceed
--- NOTE | 2021-07-02 07:47 | PM.PREOP ---
Pre-operative Note COVID-19 COVID-19 status: Negative Result date/Date tested (Pos, Neg/Pending): 07/01/21 Interval Note History & Physical reviewed/Exam performed by Physician: Yes Changes to H&P: No ASA Class (for procedural sedation): I
[2021-07-02] MEDS: MIDAZOLAM 5 MG/5 ML VIAL IV (07:58)
[2021-07-02] MEDS: fentaNYL 250 MCG/5 ML INJ IV (07:59)
[2021-07-02] MEDS: LIDOCAINE 4% SOLN 50 ML 20 ML TOP (08:00)
--- NOTE | 2021-07-02 08:37 | PM.OP.ENDO ---
Operative Date/Time/Diagnoses Date of procedure: 07/02/21 Time of procedure: 08:37 Pre-op diagnosis: Upper abdominal pain nausea vomiting. Change in bowel habits with constipation and diarrhea. Post-op diagnosis: same (Mild inflammation of the GE junction. Possible early Schatzki ring) Procedure & Clinicians Study performed: EGD with cold biopsy. Colonoscopy with cold biopsy. Same procedure as scheduled: Yes Indications: Abdominal complaints. EGD and Colonoscopy to rule out intestinal tract causes. Surgeon: Byron Mak Procedure Notes SCOAP/Timeout: Performed Procedure in detail: The patient had topical anesthetic applied to oropharynx. She was placed in the left lateral decubitus position and underwent IV sedation directed by the surgeon consisting of fentanyl and Versed. A bite block was inserted and the scope was advanced through it into the esophagus. The esophagus was unremarkable. GE junction was noted at 38 cm and there appeared to be an early Schatzki ring forming. There was no narrowing.. The stomach insufflated well. There were no lesions seen in the body, antrum or at the incisura. There may have been some very mild inflammation diffusely. The pyloric channel was patent. The duodenum was unremarkable to the 4th part. Biopsies were taken in the duodenal bulb to rule out celiac disease. Scope was brought back into the stomach and retroflexed. The proximal stomach normal in appearance. No evidence of a hiatal hernia. Random biopsies were taken to rule out H pylori or any subclinical visible process.. The scope was straightened and brought out through the esophagus again. Biopsies were taken at the GE junction and Schatzki ring. No other lesions were seen. The scope was removed and the patient tolerated the procedure well. The patient was placed in the left lateral decubitus position and underwent IV sedation directed by the surgeon consisting of fentanyl and Versed. Digital exam was unremarkable. The scope was inserted and advanced through the rectum into the sigmoid, descending, transverse, and ascending colon. Dire colon looked normal.. The cecum was reached identified by the ileocecal valve and the appendiceal opening. The ileocecal valve was successfully cannulated. The terminal ileum was normal in appearance. Even so I did biopsies of the terminal ileum. The scope was gradually brought out. No Polyps were found. The scope ultimately was retroflexed in the rectum. The appearance was normal. The scope was removed and the patient tolerated the procedure well. The prep was very good. Scope withdrawal time: Just over 6 minutes Sedation minutes: 38 Findings: other findings (Schatzki ring early. Mild inflammation at the GE junction. Biopsies taken.) Specimen(s): other (Biopsies of the duodenal bulb, random stomach, GE junction, terminal ileum.) Complications: none Post-procedure Recommendations: Start medication(s) (Omeprazole) Plan for aftercare: With family doctor Follow up: as needed Disposition: PACU
== END 2021-07-02 09:37 | disposition home or self-care (01) ==
PROVIDERS: PCP Nurse Practitioner Family; Referring Provider Specialist; Visit Provider Specialist
PROC: 0DJ08ZZ Inspection of Upper Intestinal Tract, Via Natural or Artificial Opening Endoscopic (ICD-10-PCS; CPT 43235; 2021-07-02 07:45)
PROC: 0DJD8ZZ Inspection of Lower Intestinal Tract, Via Natural or Artificial Opening Endoscopic (ICD-10-PCS; CPT 45378; 2021-07-02 07:45)
DX: R10.10 Upper abdominal pain, unspecified (principal); R11.2 Nausea with vomiting, unspecified; K59.00 Constipation, unspecified; K22.2 Esophageal obstruction
CPT/HCPCS: 45380; 43239; 99152; 99153; J2250; J3010